=== PATIENT | male | born 1940 | race Caucasian/White ===

== ENCOUNTER 2017-11-04 07:52 | Inpatient (IN) ==
[2017-11-04 09:01] LABS: Alanine Aminotransferase 24 U/L (16-61); Albumin 3.4 G/DL (3.4-5.0); Alkaline Phosphatase 98 U/L (45-117); Aspartate Amino Transferase 22 U/L (0-37); Bilirubin,Total < 0.39 MG/DL (0.2-1.0); Blood Urea Nitrogen 16 MG/DL (7-18); CKMB % 3.3 %; Glucose 149 MG/DL (74-106); Osmolality,Calculated 276.8 MOS/KG (273-304); Sodium 137 MMOL/L (136-145); Total Protein 7.5 G/DL (6.4-8.3); Troponin I Only < 0.015 NG/ML (0.00-0.045)
[2017-11-10 13:09] VITALS: BP 156/84
== END 2017-11-10 13:10 | DRG 208 ==
LOC: N.ED 07:52 → SUATTDRO 08:48 → N.EDINP 08:48 → SUATTDRO 08:49 → N.ICU 09:55 → N.5E 11-08 20:19
PROVIDERS: ADMIT Internal Medicine Cardiovascular Disease; ATTEND Internal Medicine

== ENCOUNTER 2018-01-20 07:53 | Inpatient (IN) ==
[2018-01-20] MEDS ORDERED: SODIUM CHLORIDE 0.9% 1,000 ML IV STA ×2 (08:19→08:48)
[2018-01-20] MEDS ORDERED: VANCOMYCIN INJ 1,500 MG in SODIUM CHLORIDE 0.9% 250 ML IV STA (08:19)
[2018-01-20] MEDS ORDERED: ATROPINE 1 MG/10 ML SYRINGE IV STA ×2 (08:25→10:24)
[2018-01-20] MEDS ORDERED: ATROPINE 1 MG/10 ML SYRINGE ONE (08:25)
[2018-01-20 08:46] LABS: Basophils % 0.3 % (0.0-0.8); Eosinophils # 0.2 10*3/uL (0.0-0.87); Eosinophils % 1.7 % (0.00-10.9); Hematocrit 35.8 VOL% (42.0-52.0); Hemoglobin 11.7 GM/DL (14.0-18.0); Immature Granulocytes % 0.4 %; Immature Granulocytes Absolute 0.05 #; Lymphocytes # 0.5 10*3/uL (1.4-4.0); Lymphocytes % 4.7 % (21.2-54.2); Mean Corpuscular HGB Conc 32.7 GM/DL (32-36); Mean Corpuscular Hemoglobin 32 PG (27-34); Mean Corpuscular Volume 97.3 FL (87-102); Mean Platelet Volume 11.1 FL (9.6-12.0); Monocytes # 0.7 10*3/uL (0.11-0.8); Neutrophils # 9.8 10*3/uL (1.4-7.4); Neutrophils % 86.9 % (38.7-73.9); Platelet Count 249 T/CUMM (130-400); Red Blood Count 3.68 MC/CUMM (3.8-5.5); Red Cell Distribution Width 14.1 % (9.3-17.3); White Blood Count 11.3 T/CUMM (4-12)
[2018-01-20 08:52] LABS: Apearance,Urine CLEAR (Clear); Bacteria,Urine Occasional /HPF (Few); Bilirubin,Urine Negative (Negative); Blood, Urine Negative (Negative); Glucose,Urine (UA) Negative (Negative); Ketones,Urine Negative (Negative); Nitrite,Urine Negative (Negative); Protein,Urine 30 MG/DL; RBC,Urine <1 /HPF (0-4); Squamous Epithelial Cell,Urine Occasional /HPF (0-10); Urine Color Yellow (Yellow); Urine Specific Gravity 1.005 (1.001-1.035); Urine Urobilinogen < 2.0 EU/DL (0.2-1.0); WBC,Urine 4 /HPF (0-6)
[2018-01-20 09:04] LABS: Alanine Aminotransferase 15 U/L (16-61); Albumin 3.4 G/DL (3.4-5.0); Alkaline Phosphatase 88 U/L (45-117); Aspartate Amino Transferase 14 U/L (0-37); Bilirubin,Total < 0.39 MG/DL (0.2-1.0); Calcium 8.6 MG/DL (8.5-10.1)
[2018-01-20 09:05] LABS: Blood Urea Nitrogen 27 MG/DL (7-18); Glucose 75 MG/DL (74-106); Lactic Acid 1.6 MMOL/L (0.4-2.0); Osmolality,Calculated 276.8 MOS/KG (273-304); Potassium 4.9 MMOL/L (3.5-5.1); Sodium 137 MMOL/L (136-145)
[2018-01-20] MEDS ORDERED: ONDANSETRON 4 MG/2 ML VIAL IV PRN (10:13)
[2018-01-20] MEDS ORDERED: ACETAMINOPHEN 325 MG TABLET PO PRN (10:13)
[2018-01-20] MEDS: SODIUM CHLORIDE 0.9% 1,000 ML IV SCH ×2 (11:46→21:15)
[2018-01-20 11:55] LABS: Sedimentation Rate-Westergren 73 MM/HR (0-20)
[2018-01-20] MEDS: LEVOFLOXACIN INJ 750 MG in PREMIX 1 EACH IV SCH (12:19)
[2018-01-20] MEDS: PANTOPRAZOLE 40 MG TABLET PO SCH (12:19)
[2018-01-20] MEDS: carBAMazepine 200 MG TABLET PO SCH ×2 (12:19→16:23)
[2018-01-20] MEDS: VANCOMYCIN INJ 1,500 MG in SODIUM CHLORIDE 0.9% 500 ML IV SCH (12:23)
[2018-01-20 13:30] LABS: Band Neutrophils 1 % (0-10); Eosinophils 1 % (0-10); Lymphocytes 7 % (20-55); Platelet Estimate Normal; Segmented Neutrophils 83 % (50-85); Total Cells Counted 100
[2018-01-20 13:31] LABS: Hypochromasia Slight
[2018-01-20] MEDS ORDERED: ATROPINE 1 MG/10 ML SYRINGE IV PRN (13:38)
[2018-01-20] MEDS: SILVER SULFADIAZINE 1% CREAM 25 GM TUBE TOP SCH (16:10)
[2018-01-20] MEDS: ASCORBIC ACID 500 MG TABLET PO SCH (21:31)
[2018-01-20] MEDS: MIRTAZAPINE 15 MG TABLET PO SCH (21:31)
[2018-01-20] MEDS: ENOXAPARIN 40 MG/0.4 ML SYRINGE SUBCUT SCH (21:31)
[2018-01-20] MEDS: ATORVASTATIN 40 MG TABLET PO SCH (21:31)
[2018-01-20] MEDS: LITHIUM 300 MG CAPSULE PO SCH (21:31)
[2018-01-21] MEDS: VANCOMYCIN INJ 1,500 MG in SODIUM CHLORIDE 0.9% 500 ML IV SCH ×2 (00:59→14:04)
[2018-01-21 06:04] LABS: Basophils # 0.1 10*3/uL (0.0-0.2); Basophils % 0.5 % (0.0-0.8); Eosinophils # 0.3 10*3/uL (0.0-0.87); Eosinophils % 2.8 % (0.00-10.9); Hematocrit 34.8 VOL% (42.0-52.0); Hemoglobin 10.5 GM/DL (14.0-18.0); Immature Granulocytes % 1.2 %; Immature Granulocytes Absolute 0.12 #; Lymphocytes # 1.1 10*3/uL (1.4-4.0); Lymphocytes % 10.8 % (21.2-54.2); Mean Corpuscular HGB Conc 30.2 GM/DL (32-36); Mean Corpuscular Hemoglobin 31 PG (27-34); Mean Corpuscular Volume 103.3 FL (87-102); Mean Platelet Volume 10.9 FL (9.6-12.0); Monocytes # 0.8 10*3/uL (0.11-0.8); Neutrophils # 7.7 10*3/uL (1.4-7.4); Neutrophils % 76.7 % (38.7-73.9); Platelet Count 225 T/CUMM (130-400); Red Blood Count 3.37 MC/CUMM (3.8-5.5); Red Cell Distribution Width 14.5 % (9.3-17.3)
[2018-01-21 06:40] LABS: Albumin 2.9 G/DL (3.4-5.0); Bilirubin,Total 0.5 MG/DL (0.2-1.0); Calcium 8.2 MG/DL (8.5-10.1); Potassium 4.4 MMOL/L (3.5-5.1); Total Protein 6.3 G/DL (6.4-8.3)
[2018-01-21] MEDS: SODIUM CHLORIDE 0.9% 1,000 ML IV SCH ×3 (07:26→19:40)
[2018-01-21] MEDS: ASPIRIN EC 81 MG TABLET PO SCH (08:28)
[2018-01-21] MEDS: LACTOBACILLUS ACIDOPHILUS/BULGARICUS CAPLET PO SCH (08:28)
[2018-01-21] MEDS: LITHIUM 300 MG CAPSULE PO SCH ×2 (08:29→20:58)
[2018-01-21] MEDS: MULTIVITAMIN (CENTRUM) TABLET PO SCH (08:29)
[2018-01-21] MEDS: ASCORBIC ACID 500 MG TABLET PO SCH ×2 (08:29→20:58)
[2018-01-21] MEDS: PANTOPRAZOLE 40 MG TABLET PO SCH (08:30)
[2018-01-21] MEDS: carBAMazepine 200 MG TABLET PO SCH ×3 (08:30→16:05)
[2018-01-21] MEDS: SILVER SULFADIAZINE 1% CREAM 25 GM TUBE TOP SCH (08:30)
[2018-01-21] MEDS: LEVOFLOXACIN INJ 750 MG in PREMIX 1 EACH IV SCH (12:34)
[2018-01-21] MEDS ORDERED: PROPOFOL 1,000 MG/100 ML BOTTLE IV ONE (15:40)
[2018-01-21] MEDS: MIRTAZAPINE 15 MG TABLET PO SCH (20:58)
[2018-01-21] MEDS: ATORVASTATIN 40 MG TABLET PO SCH (20:58)
[2018-01-21] MEDS: ENOXAPARIN 40 MG/0.4 ML SYRINGE SUBCUT SCH (21:03)
[2018-01-22] MEDS: VANCOMYCIN INJ 1,500 MG in SODIUM CHLORIDE 0.9% 500 ML IV SCH (01:00)
[2018-01-22] MEDS: SODIUM CHLORIDE 0.9% 1,000 ML IV SCH (03:05)
[2018-01-22 08:33] LABS: Basophils % 0.4 % (0.0-0.8); Eosinophils # 0.4 10*3/uL (0.0-0.87); Eosinophils % 4.6 % (0.00-10.9); Hematocrit 34.9 VOL% (42.0-52.0); Immature Granulocytes % 0.1 %; Immature Granulocytes Absolute 0.01 #; Lymphocytes # 1.2 10*3/uL (1.4-4.0); Lymphocytes % 13.3 % (21.2-54.2); Mean Corpuscular HGB Conc 31.5 GM/DL (32-36); Mean Corpuscular Hemoglobin 32 PG (27-34); Mean Corpuscular Volume 100.3 FL (87-102); Monocytes # 0.8 10*3/uL (0.11-0.8); Monocytes % 8.3 % (1.7-12.7); Neutrophils # 6.7 10*3/uL (1.4-7.4); Neutrophils % 73.3 % (38.7-73.9); Platelet Count 222 T/CUMM (130-400); Red Blood Count 3.48 MC/CUMM (3.8-5.5); Red Cell Distribution Width 14.4 % (9.3-17.3); White Blood Count 9.2 T/CUMM (4-12)
[2018-01-22 08:51] LABS: Osmolality,Calculated 283.3 MOS/KG (273-304); Potassium 4.1 MMOL/L (3.5-5.1)
[2018-01-22] MEDS: ASCORBIC ACID 500 MG TABLET PO SCH ×2 (09:14→21:04)
[2018-01-22] MEDS: MULTIVITAMIN (CENTRUM) TABLET PO SCH (09:14)
[2018-01-22] MEDS: TAMSULOSIN 0.4 MG CAPSULE PO SCH (09:14)
[2018-01-22] MEDS: LACTOBACILLUS ACIDOPHILUS/BULGARICUS CAPLET PO SCH (09:14)
[2018-01-22] MEDS: ASPIRIN EC 81 MG TABLET PO SCH (09:15)
[2018-01-22] MEDS: PANTOPRAZOLE 40 MG TABLET PO SCH (09:15)
[2018-01-22] MEDS: LITHIUM 300 MG CAPSULE PO SCH ×2 (09:16→21:04)
[2018-01-22] MEDS: carBAMazepine 200 MG TABLET PO SCH ×3 (09:16→16:25)
[2018-01-22] MEDS ORDERED: VANCOMYCIN INJ 1,250 MG in SODIUM CHLORIDE 0.9% 250 ML IV SCH ×2 (09:30→14:00)
[2018-01-22] MEDS: LEVOFLOXACIN INJ 750 MG in PREMIX 1 EACH IV SCH (09:47)
[2018-01-22] MEDS: SILVER SULFADIAZINE 1% CREAM 25 GM TUBE TOP SCH (10:45)
[2018-01-22] MEDS: ceFAZolin 1,000 MG in SYRINGE 1 EACH IV SCH (16:26)
[2018-01-22] MEDS: ENOXAPARIN 40 MG/0.4 ML SYRINGE SUBCUT SCH (21:03)
[2018-01-22] MEDS: MIRTAZAPINE 15 MG TABLET PO SCH (21:04)
[2018-01-22] MEDS: ATORVASTATIN 40 MG TABLET PO SCH (21:04)
[2018-01-23] MEDS: ceFAZolin 1,000 MG in SYRINGE 1 EACH IV SCH ×2 (01:24→09:57)
[2018-01-23 04:16] LABS: Basophils # 0.1 10*3/uL (0.0-0.2); Basophils % 0.5 % (0.0-0.8); Eosinophils # 0.5 10*3/uL (0.0-0.87); Eosinophils % 4.9 % (0.00-10.9); Hematocrit 34.6 VOL% (42.0-52.0); Hemoglobin 10.8 GM/DL (14.0-18.0); Immature Granulocytes % 0.3 %; Immature Granulocytes Absolute 0.03 #; Lymphocytes # 0.9 10*3/uL (1.4-4.0); Lymphocytes % 9.7 % (21.2-54.2); Mean Corpuscular HGB Conc 31.2 GM/DL (32-36); Mean Corpuscular Hemoglobin 32 PG (27-34); Mean Corpuscular Volume 102.4 FL (87-102); Mean Platelet Volume 10.8 FL (9.6-12.0); Monocytes # 0.8 10*3/uL (0.11-0.8); Monocytes % 8.9 % (1.7-12.7); Neutrophils # 7.2 10*3/uL (1.4-7.4); Neutrophils % 75.7 % (38.7-73.9); Platelet Count 212 T/CUMM (130-400); Red Blood Count 3.38 MC/CUMM (3.8-5.5); Red Cell Distribution Width 13.9 % (9.3-17.3); White Blood Count 9.5 T/CUMM (4-12)
[2018-01-23 04:44] LABS: Albumin 2.8 G/DL (3.4-5.0); Bilirubin,Total 0.5 MG/DL (0.2-1.0); Calcium 8.6 MG/DL (8.5-10.1); Potassium 4.3 MMOL/L (3.5-5.1); Total Protein 6.5 G/DL (6.4-8.3)
[2018-01-23 06:07] LABS: Folate 12.8 NG/ML (5.4-24.0)
[2018-01-23] MEDS ORDERED: CYANOCOBALAMIN 1000 MCG/1 ML VIAL IM SCH (09:00)
[2018-01-23] MEDS ORDERED: FOLIC ACID 1 MG TABLET PO SCH (09:00)
[2018-01-23] MEDS: LITHIUM 300 MG CAPSULE PO SCH (09:54)
[2018-01-23] MEDS: ASCORBIC ACID 500 MG TABLET PO SCH (09:55)
[2018-01-23] MEDS: MULTIVITAMIN (CENTRUM) TABLET PO SCH (09:55)
[2018-01-23] MEDS: PANTOPRAZOLE 40 MG TABLET PO SCH (09:55)
[2018-01-23] MEDS: LACTOBACILLUS ACIDOPHILUS/BULGARICUS CAPLET PO SCH (09:55)
[2018-01-23] MEDS: carBAMazepine 200 MG TABLET PO SCH ×2 (09:55→12:08)
[2018-01-23] MEDS: ASPIRIN EC 81 MG TABLET PO SCH (09:55)
[2018-01-23] MEDS: TAMSULOSIN 0.4 MG CAPSULE PO SCH (09:55)
[2018-01-23] MEDS: SILVER SULFADIAZINE 1% CREAM 25 GM TUBE TOP SCH (10:04)
[2018-01-23 12:04] VITALS: BP 117/59
[2018-01-25] MEDS ORDERED: CYANOCOBALAMIN 500 MCG TABLET PO SCH (09:00)
== END 2018-01-23 13:06 | DRG 603 ==
LOC: EDUNIT# → EDBD → N.ED 07:53 → N.EDINP 10:13 → SUATTDRO 10:13 → N.ICU 11:06 → N.2E 01-21 17:05
PROVIDERS: ADMIT Hospitalist; ATTEND Internal Medicine

== ENCOUNTER 2018-02-14 09:29 | Inpatient (IN) ==
[2018-02-14 10:20] LABS: Basophils % 0.4 % (0.0-0.8); Eosinophils # 0.4 10*3/uL (0.0-0.87); Eosinophils % 4.2 % (0.00-10.9); Hematocrit 36.3 VOL% (42.0-52.0); Immature Granulocytes % 0.3 %; Immature Granulocytes Absolute 0.03 #; Lymphocytes % 11.2 % (21.2-54.2); Mean Corpuscular HGB Conc 30.3 GM/DL (32-36); Mean Corpuscular Hemoglobin 31 PG (27-34); Mean Corpuscular Volume 101.7 FL (87-102); Mean Platelet Volume 10.8 FL (9.6-12.0); Monocytes # 0.7 10*3/uL (0.11-0.8); Neutrophils # 6.8 10*3/uL (1.4-7.4); Neutrophils % 75.9 % (38.7-73.9); Platelet Count 202 T/CUMM (130-400); Red Blood Count 3.57 MC/CUMM (3.8-5.5); Red Cell Distribution Width 14.7 % (9.3-17.3); White Blood Count 8.9 T/CUMM (4-12)
[2018-02-14 10:46] LABS: Albumin 3.4 G/DL (3.4-5.0); Bilirubin,Total 0.4 MG/DL (0.2-1.0); Calcium 8.7 MG/DL (8.5-10.1); Osmolality,Calculated 285.1 MOS/KG (273-304); Potassium 4.9 MMOL/L (3.5-5.1); Total Protein 6.8 G/DL (6.4-8.3)
[2018-02-14] MEDS ORDERED: ACETAMINOPHEN 325 MG TABLET PO PRN (12:38)
[2018-02-14] MEDS ORDERED: ALBUTEROL 2.5 MG/3 ML NEB RESP TX PRN (12:38)
[2018-02-14] MEDS ORDERED: ONDANSETRON 4 MG/2 ML VIAL IV PRN (12:38)
[2018-02-14] MEDS ORDERED: ATROPINE 1 MG/10 ML SYRINGE IV PRN (12:47)
[2018-02-14 13:32] LABS: Carbamazepine (Tegretol) 8.8 UG/ML (4.0-12.0); Lithium 0.9 MMOL/L (0.6-1.2)
[2018-02-14] MEDS: PANTOPRAZOLE 40 MG TABLET PO SCH (13:52)
[2018-02-14] MEDS ORDERED: INFLUENZA VIRUS VACCINE 0.5 ML SYRINGE IM ONE (14:03)
[2018-02-14] MEDS: carBAMazepine 200 MG TABLET PO SCH (17:57)
[2018-02-14] MEDS: ENOXAPARIN 40 MG/0.4 ML SYRINGE SUBCUT SCH (17:57)
[2018-02-14] MEDS: FOLIC ACID 1 MG TABLET PO SCH (21:15)
[2018-02-14] MEDS: ATORVASTATIN 40 MG TABLET PO SCH (21:15)
[2018-02-14] MEDS: MIRTAZAPINE 15 MG TABLET PO SCH (21:15)
[2018-02-14] MEDS: LOSARTAN 25 MG TABLET PO SCH (21:16)
[2018-02-14] MEDS: ASCORBIC ACID 500 MG TABLET PO SCH (21:16)
[2018-02-14] MEDS: LITHIUM 300 MG CAPSULE PO SCH (21:16)
[2018-02-15] MEDS: MULTIVITAMIN (CENTRUM) TABLET PO SCH (09:19)
[2018-02-15] MEDS: LACTULOSE 20 GM/30 ML UDCUP PO SCH (09:19)
[2018-02-15] MEDS: ASCORBIC ACID 500 MG TABLET PO SCH ×2 (09:19→20:24)
[2018-02-15] MEDS: FOLIC ACID 1 MG TABLET PO SCH ×2 (09:20→20:24)
[2018-02-15] MEDS: LITHIUM 300 MG CAPSULE PO SCH ×2 (10:00→20:24)
[2018-02-15] MEDS: carBAMazepine 200 MG TABLET PO SCH ×3 (10:00→16:25)
[2018-02-15] MEDS: ASPIRIN EC 81 MG TABLET PO SCH (10:00)
[2018-02-15] MEDS: LOSARTAN 25 MG TABLET PO SCH ×2 (10:01→20:24)
[2018-02-15] MEDS: FINASTERIDE 5 MG TABLET PO SCH (10:01)
[2018-02-15] MEDS: PANTOPRAZOLE 40 MG TABLET PO SCH (10:01)
[2018-02-15] MEDS ORDERED: VANCOMYCIN INJ 1,000 MG in SODIUM CHLORIDE 0.9% 250 ML IV ONE (10:06)
[2018-02-15] MEDS ORDERED: DIAZEPAM 5 MG TABLET PO ONE (10:06)
[2018-02-15] MEDS ORDERED: diphenhydrAMINE CAP 25 MG CAPSULE PO ONE (10:06)
[2018-02-15] MEDS ORDERED: hydrALAZINE 20 MG/1 ML VIAL IV SCH (12:00)
[2018-02-15] MEDS: SODIUM CHLORIDE 0.9% 1,000 ML IV SCH ×2 (12:23→19:40)
[2018-02-15] MEDS ORDERED: MIDAZOLAM 2 MG/2 ML VIAL ONE (13:02)
[2018-02-15] MEDS ORDERED: LIDOCAINE 1% 20 ML VIAL ONE (13:02)
[2018-02-15] MEDS ORDERED: HYDROmorphone 2 MG/1 ML VIAL ONE (13:02)
[2018-02-15] MEDS ORDERED: VANCOMYCIN 500 MG VIAL ONE ×2 (13:07→13:38)
[2018-02-15] MEDS ORDERED: LIDOCAINE 1%/EPI INJ 20 ML VIAL ONE (13:21)
[2018-02-15] MEDS ORDERED: TISSUE ADHESIVE 1 EACH APPLICATOR TOP ONE (13:47)
[2018-02-15] MEDS: ALBUTEROL 2.5 MG/3 ML NEB RESP TX SCH ×2 (14:05→19:51)
[2018-02-15] MEDS: ENOXAPARIN 40 MG/0.4 ML SYRINGE SUBCUT SCH (16:24)
[2018-02-15] MEDS: hydrALAZINE 20 MG/1 ML VIAL IV PRN ×2 (18:55→23:12)
[2018-02-15] MEDS: ATORVASTATIN 40 MG TABLET PO SCH (20:24)
[2018-02-15] MEDS: MIRTAZAPINE 15 MG TABLET PO SCH (20:24)
[2018-02-16] MEDS: ALBUTEROL 2.5 MG/3 ML NEB RESP TX SCH ×3 (00:56→12:15)
[2018-02-16] MEDS: hydrALAZINE 20 MG/1 ML VIAL IV PRN (04:22)
[2018-02-16 05:27] LABS: Basophils # 0.1 10*3/uL (0.0-0.2); Basophils % 0.6 % (0.0-0.8); Eosinophils # 0.2 10*3/uL (0.0-0.87); Hematocrit 34.9 VOL% (42.0-52.0); Hemoglobin 10.7 GM/DL (14.0-18.0); Immature Granulocytes % 0.4 %; Immature Granulocytes Absolute 0.04 #; Lymphocytes # 1.1 10*3/uL (1.4-4.0); Lymphocytes % 10.2 % (21.2-54.2); Mean Corpuscular HGB Conc 30.7 GM/DL (32-36); Mean Corpuscular Hemoglobin 31 PG (27-34); Mean Corpuscular Volume 100.9 FL (87-102); Mean Platelet Volume 11.3 FL (9.6-12.0); Monocytes # 0.9 10*3/uL (0.11-0.8); Monocytes % 8.1 % (1.7-12.7); Neutrophils # 8.4 10*3/uL (1.4-7.4); Neutrophils % 78.7 % (38.7-73.9); Platelet Count 199 T/CUMM (130-400); Red Blood Count 3.46 MC/CUMM (3.8-5.5); Red Cell Distribution Width 14.5 % (9.3-17.3); White Blood Count 10.6 T/CUMM (4-12)
[2018-02-16 05:50] LABS: Calcium 8.4 MG/DL (8.5-10.1); Osmolality,Calculated 277.5 MOS/KG (273-304); Potassium 5.2 MMOL/L (3.5-5.1)
[2018-02-16 06:00] LABS: Calcium 8.4 MG/DL (8.5-10.1); Osmolality,Calculated 275.7 MOS/KG (273-304); Potassium 5.2 MMOL/L (3.5-5.1)
[2018-02-16] MEDS: MULTIVITAMIN (CENTRUM) TABLET PO SCH (08:27)
[2018-02-16] MEDS: carBAMazepine 200 MG TABLET PO SCH ×3 (08:27→16:07)
[2018-02-16] MEDS: FOLIC ACID 1 MG TABLET PO SCH ×2 (08:27→20:42)
[2018-02-16] MEDS: LOSARTAN 25 MG TABLET PO SCH (08:28)
[2018-02-16] MEDS: LITHIUM 300 MG CAPSULE PO SCH ×2 (08:28→20:42)
[2018-02-16] MEDS: PANTOPRAZOLE 40 MG TABLET PO SCH (08:28)
[2018-02-16] MEDS: ASPIRIN EC 81 MG TABLET PO SCH (08:28)
[2018-02-16] MEDS: FINASTERIDE 5 MG TABLET PO SCH (08:28)
[2018-02-16] MEDS: LACTULOSE 20 GM/30 ML UDCUP PO SCH (08:28)
[2018-02-16] MEDS: ASCORBIC ACID 500 MG TABLET PO SCH ×2 (08:28→20:42)
[2018-02-16] MEDS ORDERED: SODIUM POLYSTYRENE SULFATE 15 GM/60 ML BOTTLE PO ONE (08:44)
[2018-02-16] MEDS: SODIUM CHLORIDE 0.9% 1,000 ML IV SCH (09:33)
[2018-02-16] MEDS: hydrALAZINE 25 MG TABLET PO SCH ×2 (09:33→20:42)
[2018-02-16] MEDS: ENOXAPARIN 40 MG/0.4 ML SYRINGE SUBCUT SCH (16:06)
[2018-02-16] MEDS: MIRTAZAPINE 15 MG TABLET PO SCH (20:42)
[2018-02-16] MEDS: ATORVASTATIN 40 MG TABLET PO SCH (20:42)
[2018-02-17 06:02] LABS: Basophils % 0.3 % (0.0-0.8); Eosinophils # 0.6 10*3/uL (0.0-0.87); Eosinophils % 4.2 % (0.00-10.9); Hematocrit 36.2 VOL% (42.0-52.0); Hemoglobin 11.3 GM/DL (14.0-18.0); Immature Granulocytes % 0.4 %; Immature Granulocytes Absolute 0.05 #; Lymphocytes # 1.3 10*3/uL (1.4-4.0); Lymphocytes % 10.1 % (21.2-54.2); Mean Corpuscular HGB Conc 31.2 GM/DL (32-36); Mean Corpuscular Hemoglobin 31 PG (27-34); Mean Platelet Volume 10.9 FL (9.6-12.0); Monocytes # 1.2 10*3/uL (0.11-0.8); Monocytes % 9.2 % (1.7-12.7); Neutrophils % 75.8 % (38.7-73.9); Platelet Count 201 T/CUMM (130-400); Red Blood Count 3.62 MC/CUMM (3.8-5.5); Red Cell Distribution Width 14.6 % (9.3-17.3); White Blood Count 13.2 T/CUMM (4-12)
[2018-02-17 06:22] LABS: Calcium 8.7 MG/DL (8.5-10.1); Osmolality,Calculated 277.5 MOS/KG (273-304); Potassium 4.5 MMOL/L (3.5-5.1)
[2018-02-17] MEDS: MULTIVITAMIN (CENTRUM) TABLET PO SCH (09:38)
[2018-02-17] MEDS: FINASTERIDE 5 MG TABLET PO SCH (09:38)
[2018-02-17] MEDS: carBAMazepine 200 MG TABLET PO SCH ×3 (09:38→16:23)
[2018-02-17] MEDS: LITHIUM 300 MG CAPSULE PO SCH (09:38)
[2018-02-17] MEDS: ASCORBIC ACID 500 MG TABLET PO SCH ×2 (09:39→21:01)
[2018-02-17] MEDS: FOLIC ACID 1 MG TABLET PO SCH ×2 (09:39→21:01)
[2018-02-17] MEDS: hydrALAZINE 25 MG TABLET PO SCH (09:39)
[2018-02-17] MEDS: LACTULOSE 20 GM/30 ML UDCUP PO SCH (09:39)
[2018-02-17] MEDS: ASPIRIN EC 81 MG TABLET PO SCH (09:39)
[2018-02-17] MEDS: PANTOPRAZOLE 40 MG TABLET PO SCH (09:39)
[2018-02-17] MEDS: LOSARTAN 50 MG TABLET PO SCH (11:15)
[2018-02-17 15:23] LABS: Apearance,Urine CLEAR (Clear); Bilirubin,Urine Negative (Negative); Blood, Urine Negative (Negative); Glucose,Urine (UA) Negative (Negative); Ketones,Urine Negative (Negative); Mucus,Urine Occasional /LPF (Occasional); Nitrite,Urine Negative (Negative); Protein,Urine Negative; RBC,Urine <1 /HPF (0-4); Squamous Epithelial Cell,Urine Occasional /HPF (0-10); Urine Color Yellow (Yellow); Urine Specific Gravity 1.009 (1.001-1.035); Urine Urobilinogen < 2.0 EU/DL (0.2-1.0); WBC,Urine 2 /HPF (0-6)
[2018-02-17] MEDS: ENOXAPARIN 40 MG/0.4 ML SYRINGE SUBCUT SCH (16:23)
[2018-02-17] MEDS: MIRTAZAPINE 15 MG TABLET PO SCH (21:01)
[2018-02-17] MEDS: ATORVASTATIN 40 MG TABLET PO SCH (21:01)
[2018-02-17 22:25] LABS: Carbamazepine (Tegretol) 9.9 UG/ML (4.0-12.0); Lithium 0.8 MMOL/L (0.6-1.2)
[2018-02-18] MEDS: LITHIUM 300 MG CAPSULE PO SCH ×3 (00:23→21:46)
[2018-02-18] MEDS: LACTULOSE 20 GM/30 ML UDCUP PO SCH (09:12)
[2018-02-18] MEDS: FOLIC ACID 1 MG TABLET PO SCH ×2 (09:13→21:37)
[2018-02-18] MEDS: LOSARTAN 50 MG TABLET PO SCH (09:13)
[2018-02-18] MEDS: FINASTERIDE 5 MG TABLET PO SCH (09:13)
[2018-02-18] MEDS: carBAMazepine 200 MG TABLET PO SCH ×3 (09:13→16:07)
[2018-02-18] MEDS: PANTOPRAZOLE 40 MG TABLET PO SCH (09:13)
[2018-02-18] MEDS: ASPIRIN EC 81 MG TABLET PO SCH (09:13)
[2018-02-18] MEDS: MULTIVITAMIN (CENTRUM) TABLET PO SCH (09:14)
[2018-02-18] MEDS: ASCORBIC ACID 500 MG TABLET PO SCH ×2 (09:14→21:37)
[2018-02-18 10:29] LABS: Basophils # 0.1 10*3/uL (0.0-0.2); Basophils % 0.4 % (0.0-0.8); Eosinophils # 0.5 10*3/uL (0.0-0.87); Eosinophils % 3.8 % (0.00-10.9); Hematocrit 36.7 VOL% (42.0-52.0); Hemoglobin 11.4 GM/DL (14.0-18.0); Immature Granulocytes % 0.3 %; Immature Granulocytes Absolute 0.04 #; Lymphocytes # 1.4 10*3/uL (1.4-4.0); Lymphocytes % 10.7 % (21.2-54.2); Mean Corpuscular HGB Conc 31.1 GM/DL (32-36); Mean Corpuscular Hemoglobin 31 PG (27-34); Mean Platelet Volume 10.8 FL (9.6-12.0); Monocytes # 1.2 10*3/uL (0.11-0.8); Monocytes % 9.3 % (1.7-12.7); Neutrophils # 9.6 10*3/uL (1.4-7.4); Neutrophils % 75.5 % (38.7-73.9); Platelet Count 197 T/CUMM (130-400); Red Blood Count 3.67 MC/CUMM (3.8-5.5); Red Cell Distribution Width 14.6 % (9.3-17.3); White Blood Count 12.7 T/CUMM (4-12)
[2018-02-18] MEDS ORDERED: LEVOFLOXACIN INJ 750 MG in PREMIX 1 EACH IV SCH (11:00)
[2018-02-18 11:19] LABS: Calcium 9.1 MG/DL (8.5-10.1); Osmolality,Calculated 276.5 MOS/KG (273-304); Potassium 4.4 MMOL/L (3.5-5.1)
[2018-02-18] MEDS: VANCOMYCIN INJ 1,500 MG in SODIUM CHLORIDE 0.9% 500 ML IV SCH (13:14)
[2018-02-18] MEDS: ENOXAPARIN 40 MG/0.4 ML SYRINGE SUBCUT SCH (16:07)
[2018-02-18] MEDS ORDERED: HALOPERIDOL 5 MG/ML AMP IM PRN (20:38)
[2018-02-18] MEDS: risperiDONE 1 MG TABLET PO PRN (21:36)
[2018-02-18] MEDS: ATORVASTATIN 40 MG TABLET PO SCH (21:37)
[2018-02-18] MEDS: MIRTAZAPINE 15 MG TABLET PO SCH (21:37)
[2018-02-19] MEDS: VANCOMYCIN INJ 1,500 MG in SODIUM CHLORIDE 0.9% 500 ML IV SCH (00:28)
[2018-02-19] MEDS: risperiDONE 1 MG TABLET PO PRN (04:01)
[2018-02-19] MEDS: FOLIC ACID 1 MG TABLET PO SCH (09:47)
[2018-02-19] MEDS: LOSARTAN 50 MG TABLET PO SCH (09:47)
[2018-02-19] MEDS: PANTOPRAZOLE 40 MG TABLET PO SCH (09:47)
[2018-02-19] MEDS: carBAMazepine 200 MG TABLET PO SCH ×2 (09:47→12:19)
[2018-02-19] MEDS: LACTULOSE 20 GM/30 ML UDCUP PO SCH (09:47)
[2018-02-19] MEDS: LITHIUM 300 MG CAPSULE PO SCH (09:47)
[2018-02-19] MEDS: MULTIVITAMIN (CENTRUM) TABLET PO SCH (09:47)
[2018-02-19] MEDS: FINASTERIDE 5 MG TABLET PO SCH (09:47)
[2018-02-19] MEDS: ASPIRIN EC 81 MG TABLET PO SCH (09:48)
[2018-02-19] MEDS: ASCORBIC ACID 500 MG TABLET PO SCH (09:48)
[2018-02-19 12:01] VITALS: BP 101/49
[2018-02-19] MEDS: ENOXAPARIN 40 MG/0.4 ML SYRINGE SUBCUT SCH (13:44)
[2018-02-19] MEDS ORDERED: SULFAMETHOX/TRIMETHOPRIM 800-160 MG TABLET PO SCH (21:00)
== END 2018-02-19 14:28 | DRG 243 ==
LOC: EDBD → EDUNIT# → N.ED 09:29 → SUATTDRO 12:38 → N.EDINP 12:38 → N.CC 13:39 → N.TELEN 02-16 12:45
PROVIDERS: ADMIT Internal Medicine

== ENCOUNTER 2021-02-25 17:03 | Inpatient (IN) ==
[2021-02-25] MEDS ORDERED: SODIUM CHLORIDE 0.9% 1,000 ML IV STA (17:41)
[2021-02-25 18:23] LABS: Basophils % 0.3 % (0.0-0.8); Eosinophils # 0.4 10*3/uL (0.0-0.87); Eosinophils % 4.5 % (0.00-10.9); Hematocrit 44.6 VOL% (42.0-52.0); Immature Granulocytes % 0.5 %; Immature Granulocytes Absolute 0.04 #; Lymphocytes % 11.1 % (21.2-54.2); Mean Corpuscular HGB Conc 29.8 GM/DL (32-36); Mean Platelet Volume 11.6 FL (9.6-12.0); Monocytes % 5.6 % (1.7-12.7); Platelet Count 165 T/CUMM (130-400); Red Blood Count 4.33 MC/CUMM (3.8-5.5); Red Cell Distribution Width 13.8 % (9.3-17.3); White Blood Count 8.7 T/CUMM (4-12)
[2021-02-25 18:25] LABS: Hemoglobin 13.3 GM/DL (14.0-18.0)
[2021-02-25 18:31] LABS: Bacteria,Urine Many /HPF (Few); Bilirubin,Urine Negative (Negative); Blood, Urine Negative (Negative); Glucose,Urine (UA) Negative (Negative); Hyaline Casts,Urine 5 /LPF (0-3); Ketones,Urine Negative (Negative); Mucus,Urine Occasional /LPF (Occasional); Nitrite,Urine Negative (Negative); Protein,Urine Negative; RBC,Urine 2 /HPF (0-4); Urine Appearance CLEAR (Clear); Urine Color Yellow (Yellow); Urine Specific Gravity 1.009 (1.001-1.035); Urine Urobilinogen < 2.0 EU/DL (0.2-1.0)
[2021-02-25 18:40] LABS: Bilirubin,Total 0.4 MG/DL (0.20-1.00); Calcium 9.5 MG/DL (8.5-10.1); Osmolality,Calculated 276.7 MOS/KG (273-304); Potassium 5.7 MMOL/L (3.5-5.1); Total Protein 6.8 G/DL (6.4-8.2)
[2021-02-25] MEDS ORDERED: LEVALBUTEROL 1.25 MG/3 ML NEB RESP TX STA (20:57)
[2021-02-25] MEDS ORDERED: ONDANSETRON 4 MG/2 ML VIAL IV PRN (22:28)
[2021-02-25] MEDS ORDERED: ACETAMINOPHEN 325 MG TABLET PO PRN (22:28)
[2021-02-25] MEDS ORDERED: INSULIN REGULAR 10 UNIT, CALCIUM GLUCONATE 1,000 MG in DEXTROSE 10% 250 ML IV ONE (23:00)
[2021-02-26] MEDS ORDERED: LEVOFLOXACIN INJ 750 MG/150 ML PREMIX IV SCH
[2021-02-26] MEDS ORDERED: AZTREONAM 2,000 MG in SODIUM CHLORIDE 0.9% 100 ML IV SCH
[2021-02-26] MEDS: LEVALBUTEROL 1.25 MG/3 ML NEB RESP TX SCH ×2 (00:35→07:28)
[2021-02-26 06:32] LABS: Albumin 2.8 G/DL (3.4-5.0); Bilirubin,Total 0.7 MG/DL (0.20-1.00); Calcium 9.8 MG/DL (8.5-10.1); Total Protein 6.8 G/DL (6.4-8.2)
[2021-02-26 06:39] LABS: Basophils % 0.4 % (0.0-0.8); Eosinophils # 0.4 10*3/uL (0.0-0.87); Eosinophils % 3.7 % (0.00-10.9); Hematocrit 43.7 VOL% (42.0-52.0); Immature Granulocytes % 0.5 %; Immature Granulocytes Absolute 0.05 #; Lymphocytes # 0.8 10*3/uL (1.4-4.0); Lymphocytes % 8.1 % (21.2-54.2); Mean Corpuscular HGB Conc 29.7 GM/DL (32-36); Mean Corpuscular Volume 103.8 FL (87-102); Mean Platelet Volume 10.8 FL (9.6-12.0); Monocytes % 5.9 % (1.7-12.7); Neutrophils % 81.4 % (38.7-73.9); Platelet Count 179 T/CUMM (130-400); Red Blood Count 4.21 MC/CUMM (3.8-5.5); Red Cell Distribution Width 13.7 % (9.3-17.3); White Blood Count 9.3 T/CUMM (4-12)
[2021-02-26 06:42] LABS: Osmolality,Calculated 276.7 MOS/KG (273-304); Potassium 4.5 MMOL/L (3.5-5.1)
[2021-02-26] MEDS ORDERED: OLANZapine 2.5 MG TABLET PO PRN (07:26)
[2021-02-26] MEDS ORDERED: ZIPRASIDONE 20 MG/1 ML VIAL IM PRN (08:57)
[2021-02-26] MEDS ORDERED: cefTRIAXone 1,000 MG in SODIUM CHLORIDE 0.9% 100 ML IV SCH (09:00)
[2021-02-26] MEDS ORDERED: ENOXAPARIN 40 MG/0.4 ML SYRINGE SUBCUT SCH (09:00)
[2021-02-26] MEDS ORDERED: INFLUENZA VIRUS VACCINE 0.5 ML SYRINGE IM ONE (09:00)
[2021-02-26] MEDS ORDERED: PANTOPRAZOLE 40 MG TABLET PO SCH (09:00)
[2021-02-26] MEDS: OLANZapine 2.5 MG TABLET PO SCH ×2 (09:38→14:47)
[2021-02-26] MEDS ORDERED: AZITHROMYCIN INJ 500 MG in SODIUM CHLORIDE 0.9% 250 ML IV SCH (10:00)
[2021-02-26] MEDS ORDERED: FLUTICASONE 50 MCG NASAL SPRAY 16 GM BOTTLE BOTH NARES SCH (11:00)
[2021-02-26] MEDS ORDERED: ALBUTEROL 2.5 MG/3 ML NEB RESP TX SCH (13:00)
[2021-02-26 16:02] VITALS: BP 122/54
== END 2021-02-26 16:04 | DRG 194 ==
LOC: EDUNIT# → EDBD → N.ED 17:03 → N.EDINP 22:28 → N.5E 23:07
PROVIDERS: ADMIT Internal Medicine; ATTEND Internal Medicine

== ENCOUNTER 2021-03-23 08:42 | Inpatient (IN) ==
[2021-03-23] MEDS ORDERED: SODIUM CHLORIDE 0.9% 2,000 ML IV STA (09:02)
[2021-03-23 09:32] LABS: Basophils % 0.1 % (0.0-0.8); Eosinophils # 0.1 10*3/uL (0.0-0.87); Eosinophils % 0.4 % (0.00-10.9); Hematocrit 41.4 VOL% (42.0-52.0); Hemoglobin 12.7 GM/DL (14.0-18.0); Immature Granulocytes % 0.4 %; Immature Granulocytes Absolute 0.06 #; Lymphocytes # 0.7 10*3/uL (1.4-4.0); Lymphocytes % 4.6 % (21.2-54.2); Mean Corpuscular HGB Conc 30.7 GM/DL (32-36); Mean Platelet Volume 11.1 FL (9.6-12.0); Monocytes % 4.5 % (1.7-12.7); Platelet Count 210 T/CUMM (130-400); Red Blood Count 4.06 MC/CUMM (3.8-5.5); Red Cell Distribution Width 14.2 % (9.3-17.3); White Blood Count 14.5 T/CUMM (4-12)
[2021-03-23 10:06] LABS: Eosinophils 1 % (0-10); Lymphocytes 4 % (20-55); Segmented Neutrophils 94 % (50-85); Total Cells Counted 100
[2021-03-23 10:07] LABS: Hypochromasia Slight; Macrocytosis Slight
[2021-03-23 10:08] LABS: Burr Cells Slight
[2021-03-23 10:20] LABS: Amorphous Crystals,Urine Few /HPF (Few); Bacteria,Urine Few /HPF (Few); Bilirubin,Urine Negative (Negative); Blood, Urine Negative (Negative); Glucose,Urine (UA) Negative (Negative); Hyaline Casts,Urine 1 /LPF (0-3); Ketones,Urine Negative (Negative); Mucus,Urine Occasional /LPF (Occasional); Nitrite,Urine Negative (Negative); Protein,Urine Negative; Squamous Epithelial Cell,Urine Occasional /HPF (0-10); Urine Appearance Slightly Hazy (Clear); Urine Color Yellow (Yellow); Urine Specific Gravity 1.015 (1.001-1.035); Urine Urobilinogen < 2.0 EU/DL (0.2-1.0)
[2021-03-23 10:25] LABS: Barbiturates Screen,Urine Negative (Negative); Benzodiazepines Screen,Urine Negative (Negative); Cannabinoid Screen,Urine Negative (Negative); Opiate Screen,Urine Negative (Negative); Phencyclidine Screen,Urine Negative (Negative)
[2021-03-23 10:29] LABS: PT Patient Result 11.3 SECS (10.5-12.0); Partial Thromboplastin Time 34.3 SECS (23.8-32.1)
[2021-03-23 10:38] LABS: Albumin 2.8 G/DL (3.4-5.0); Bilirubin,Total 0.4 MG/DL (0.20-1.00); Calcium 9.1 MG/DL (8.5-10.1); Osmolality,Calculated 297.7 MOS/KG (273-304); Potassium 4.7 MMOL/L (3.5-5.1); Total Protein 7.1 G/DL (6.4-8.2)
[2021-03-23] MEDS ORDERED: LEVOFLOXACIN INJ 500 MG/100 ML PREMIX IV ONE (11:15)
[2021-03-23] MEDS ORDERED: LEVOFLOXACIN INJ 500 MG/100 ML PREMIX IV STA (11:30)
[2021-03-23] MEDS ORDERED: SODIUM CHLORIDE 0.9% 1,000 ML IV STA (11:32)
[2021-03-23] MEDS ORDERED: ALBUTEROL 2.5 MG/3 ML NEB RESP TX PRN (11:49)
[2021-03-23] MEDS ORDERED: ONDANSETRON 4 MG/2 ML VIAL IV PRN (11:50)
[2021-03-23] MEDS ORDERED: POLYVINYL ALCOHOL 1.4% OPH SOLN 15 ML BOTTLE BOTH EYES PRN (11:53)
[2021-03-23] MEDS ORDERED: SODIUM CHLORIDE 0.65% NASAL SPRAY 45 ML BOTTLE BOTH NARES PRN (11:53)
[2021-03-23] MEDS ORDERED: ALBUTEROL/IPRATROPIUM 3 ML NEB RESP TX SCH (12:00)
[2021-03-23 12:26] LABS: Allen Test Positive; Pt O2 Delivery Device Simple Mask
[2021-03-23 12:29] LABS: ABG Base Excess -8.7 MMOL/L (-2.5-2.5); ABG HCO3 29.9 MMOL/L (20-26); ABG Oxygen Saturation 82.3 % (95-100); ABG PH 6.786 (7.35-7.45); ABG PO2 64.7 MM HG (80-95); ABG TCO2 36.1 MMOL/L (23-27)
[2021-03-23] MEDS ORDERED: cefTRIAXone 1,000 MG in SODIUM CHLORIDE 0.9% 100 ML IV SCH (12:30)
[2021-03-23 12:32] LABS: ABG PCO2 202.7 MM HG (35-48)
[2021-03-23] MEDS ORDERED: NOREPINEPHRINE 4 MG/4 ML VIAL IV ONE ×3 (12:43→16:58)
[2021-03-23] MEDS: NOREPINEPHRINE 8 MG in SODIUM CHLORIDE 0.9% 242 ML IV PRN ×4 (12:47→22:43)
[2021-03-23] MEDS ORDERED: SODIUM BICARBONATE 50 MEQ/50 ML VIAL IV ONE ×3 (12:49→22:35)
[2021-03-23] MEDS: HYDROCORTISONE 100 MG VIAL IV SCH ×2 (13:16→20:41)
[2021-03-23 13:27] LABS: ABG Base Excess -5.7 MMOL/L (-2.5-2.5); ABG HCO3 19.8 MMOL/L (20-26); ABG Oxygen Saturation 99.7 % (95-100); ABG TCO2 24.4 MMOL/L (23-27)
[2021-03-23] MEDS ORDERED: NOREPINEPHRINE 8 MG in SODIUM CHLORIDE 0.9% 242 ML IV PRN (13:27)
[2021-03-23 13:29] LABS: ABG PCO2 80.9 MM HG (35-48); ABG PH 7.124 (7.35-7.45)
[2021-03-23] MEDS ORDERED: ETOMIDATE 20 MG/10 ML VIAL IV ONE (14:00)
[2021-03-23] MEDS ORDERED: ROCURONIUM 100 MG/10 ML VIAL IV ONE (14:00)
[2021-03-23] MEDS: HEPARIN 5,000 UNIT/1 ML VIAL SUBCUT SCH (14:35)
[2021-03-23 14:47] LABS: ABG Base Excess -5.2 MMOL/L (-2.5-2.5); ABG HCO3 20.2 MMOL/L (20-26); ABG Oxygen Saturation 99.7 % (95-100); ABG PCO2 39.6 MM HG (35-48); ABG PH 7.323 (7.35-7.45); Allen Test Positive; Pt O2 Delivery Device Ventilator
[2021-03-23] MEDS: SODIUM CHLORIDE 0.9% 1,000 ML IV SCH (17:20)
[2021-03-23] MEDS ORDERED: INFLUENZA VIRUS VACCINE 0.5 ML SYRINGE IM ONE (18:17)
[2021-03-23] MEDS: ALBUTEROL/IPRATROPIUM 3 ML NEB RESP TX SCH (18:56)
[2021-03-23] MEDS: DOCUSATE SODIUM 100 MG CAPSULE PO SCH (20:41)
[2021-03-23] MEDS: cilostazoL 50 MG TABLET PO SCH (20:41)
[2021-03-23] MEDS: TAMSULOSIN 0.4 MG CAPSULE PO SCH (20:41)
[2021-03-23] MEDS ORDERED: LORazepam 2 MG/1 ML VIAL IV ONE (21:40)
[2021-03-23] MEDS ORDERED: PHENYLEPHRINE DRIP 40 MG/250 ML PREMIX IV ONE (21:41)
[2021-03-23] MEDS ORDERED: LORazepam 2 MG/1 ML VIAL ONE (21:41)
[2021-03-23 21:49] LABS: Basophils % 0.1 % (0.0-0.8); Hematocrit 44.1 VOL% (42.0-52.0); Hemoglobin 13.7 GM/DL (14.0-18.0); Immature Granulocytes % 0.9 %; Immature Granulocytes Absolute 0.22 #; Lymphocytes # 0.2 10*3/uL (1.4-4.0); Lymphocytes % 0.8 % (21.2-54.2); Mean Corpuscular HGB Conc 31.1 GM/DL (32-36); Mean Corpuscular Volume 98.7 FL (87-102); Mean Platelet Volume 10.9 FL (9.6-12.0); Monocytes % 5.1 % (1.7-12.7); Neutrophils % 93.1 % (38.7-73.9); Platelet Count 285 T/CUMM (130-400); Red Blood Count 4.47 MC/CUMM (3.8-5.5); Red Cell Distribution Width 14.1 % (9.3-17.3); White Blood Count 25.4 T/CUMM (4-12)
[2021-03-23 22:06] LABS: Albumin 2.6 G/DL (3.4-5.0); Bilirubin,Total 0.4 MG/DL (0.20-1.00); Calcium 8.2 MG/DL (8.5-10.1); Osmolality,Calculated 307.1 MOS/KG (273-304); Potassium 3.7 MMOL/L (3.5-5.1); Total Protein 6.8 G/DL (6.4-8.2)
[2021-03-23 22:22] LABS: ABG Base Excess -6.5 MMOL/L (-2.5-2.5); ABG HCO3 19.1 MMOL/L (20-26); ABG Oxygen Saturation 93.4 % (95-100); ABG PCO2 44.2 MM HG (35-48); ABG PH 7.273 (7.35-7.45); ABG PO2 70.9 MM HG (80-95)
[2021-03-23] MEDS: PHENYLEPHRINE DRIP 40 MG/250 ML PREMIX IV PRN (22:55)
[2021-03-24] MEDS: SODIUM CHLORIDE 0.9% 1,000 ML IV SCH ×5 (00:15→21:05)
[2021-03-24] MEDS: HEPARIN 5,000 UNIT/1 ML VIAL SUBCUT SCH ×3 (00:45→23:54)
[2021-03-24] MEDS: ALBUTEROL/IPRATROPIUM 3 ML NEB RESP TX SCH ×4 (00:55→19:47)
[2021-03-24 01:17] LABS: ABG Base Excess -2.8 MMOL/L (-2.5-2.5); ABG HCO3 22.1 MMOL/L (20-26); ABG Oxygen Saturation 95.1 % (95-100); ABG PH 7.395 (7.35-7.45); ABG PO2 69.3 MM HG (80-95); ABG TCO2 18.7 MMOL/L (23-27)
[2021-03-24] MEDS ORDERED: LORazepam 2 MG/1 ML VIAL IV ONE (01:33)
[2021-03-24] MEDS: NOREPINEPHRINE 16 MG in SODIUM CHLORIDE 0.9% 234 ML IV PRN ×3 (01:45→11:11)
[2021-03-24] MEDS ORDERED: LORazepam 2 MG/1 ML VIAL IV PRN (02:00)
[2021-03-24] MEDS: PHENYLEPHRINE DRIP 40 MG/250 ML PREMIX IV PRN (02:04)
[2021-03-24 02:43] LABS: Lymphocytes 1 % (20-55); Segmented Neutrophils 95 % (50-85); Total Cells Counted 100
[2021-03-24 02:44] LABS: Burr Cells 1+; Platelet Estimate Normal
[2021-03-24] MEDS: MIDAZOLAM 100 MG in SODIUM CHLORIDE 0.9% 80 ML IV PRN (02:53)
[2021-03-24 04:58] LABS: ABG Base Excess -3.2 MMOL/L (-2.5-2.5); ABG HCO3 21.7 MMOL/L (20-26); ABG Oxygen Saturation 95.3 % (95-100); ABG PCO2 35.7 MM HG (35-48); ABG PH 7.383 (7.35-7.45); ABG PO2 74.3 MM HG (80-95); ABG TCO2 18.2 MMOL/L (23-27)
[2021-03-24 05:00] LABS: Basophils % 0.1 % (0.0-0.8); Eosinophils % 0.1 % (0.00-10.9); Hematocrit 43.9 VOL% (42.0-52.0); Hemoglobin 13.8 GM/DL (14.0-18.0); Immature Granulocytes % 0.8 %; Immature Granulocytes Absolute 0.16 #; Lymphocytes # 0.6 10*3/uL (1.4-4.0); Lymphocytes % 3.1 % (21.2-54.2); Mean Corpuscular HGB Conc 31.4 GM/DL (32-36); Mean Corpuscular Volume 97.3 FL (87-102); Mean Platelet Volume 10.9 FL (9.6-12.0); Monocytes % 7.1 % (1.7-12.7); Neutrophils % 88.8 % (38.7-73.9); Platelet Count 294 T/CUMM (130-400); Red Blood Count 4.51 MC/CUMM (3.8-5.5); Red Cell Distribution Width 14.5 % (9.3-17.3); White Blood Count 19.1 T/CUMM (4-12)
[2021-03-24 05:12] LABS: Calcium 8.6 MG/DL (8.5-10.1); Osmolality,Calculated 306.1 MOS/KG (273-304); Potassium 3.7 MMOL/L (3.5-5.1)
[2021-03-24 05:21] LABS: Eosinophils 1 % (0-10); Hypochromasia Slight; Lymphocytes 5 % (20-55); Microcytosis Slight; Platelet Estimate Adequate; Segmented Neutrophils 88 % (50-85); Total Cells Counted 100
[2021-03-24] MEDS: ACETAMINOPHEN 325 MG TABLET PO PRN ×2 (05:27→20:07)
[2021-03-24] MEDS: MONTELUKAST 10 MG TABLET PO SCH (05:27)
[2021-03-24] MEDS: HYDROCORTISONE 100 MG VIAL IV SCH ×3 (05:27→20:06)
[2021-03-24] MEDS: cilostazoL 50 MG TABLET PO SCH ×2 (09:44→20:06)
[2021-03-24] MEDS: DOCUSATE SODIUM 100 MG/10 ML UDCUP PO SCH ×2 (09:44→20:06)
[2021-03-24] MEDS: ASPIRIN 325 MG TABLET PO SCH (09:44)
[2021-03-24] MEDS: ROSUVASTATIN 20 MG TABLET PO SCH (09:44)
[2021-03-24] MEDS: LACTULOSE 20 GM/30 ML UDCUP PO SCH (09:45)
[2021-03-24] MEDS: PANTOPRAZOLE 40 MG VIAL IV SCH (09:52)
[2021-03-24] MEDS: CEFEPIME 1,000 MG in SODIUM CHLORIDE 0.9% 100 ML IV SCH ×2 (09:52→20:07)
[2021-03-24] MEDS: DOCUSATE SODIUM 100 MG CAPSULE PO SCH (10:25)
[2021-03-24 10:29] LABS: ABG HCO3 22.8 MMOL/L (20-26); ABG Oxygen Saturation 99.1 % (95-100); ABG PCO2 33.9 MM HG (35-48); ABG PH 7.417 (7.35-7.45); ABG TCO2 19.1 MMOL/L (23-27)
[2021-03-24] MEDS: DESITIN 4OZ/NYSTATIN 15 GRAM MIXTURE PASTE TOP SCH ×2 (16:05→20:06)
[2021-03-24] MEDS: TAMSULOSIN 0.4 MG CAPSULE PO SCH (20:06)
[2021-03-25 03:17] LABS: ABG Base Excess -1.8 MMOL/L (-2.5-2.5); ABG HCO3 22.9 MMOL/L (20-26); ABG Oxygen Saturation 99.4 % (95-100); ABG PCO2 37.4 MM HG (35-48); ABG PH 7.392 (7.35-7.45); ABG TCO2 20.6 MMOL/L (23-27)
[2021-03-25 03:27] LABS: Basophils % 0.1 % (0.0-0.8); Eosinophils % 0.1 % (0.00-10.9); Hematocrit 33.3 VOL% (42.0-52.0); Immature Granulocytes % 0.6 %; Immature Granulocytes Absolute 0.07 #; Lymphocytes # 0.5 10*3/uL (1.4-4.0); Lymphocytes % 4.5 % (21.2-54.2); Mean Corpuscular HGB Conc 30.6 GM/DL (32-36); Mean Corpuscular Volume 98.2 FL (87-102); Mean Platelet Volume 10.9 FL (9.6-12.0); Monocytes % 4.4 % (1.7-12.7); Neutrophils % 90.3 % (38.7-73.9); Red Blood Count 3.39 MC/CUMM (3.8-5.5)
[2021-03-25 03:30] LABS: Hemoglobin 10.2 GM/DL (14.0-18.0); Platelet Count 181 T/CUMM (130-400); White Blood Count 11.7 T/CUMM (4-12)
[2021-03-25] MEDS: ALBUTEROL/IPRATROPIUM 3 ML NEB RESP TX SCH ×4 (03:30→18:20)
[2021-03-25 03:35] LABS: Calcium 8.2 MG/DL (8.5-10.1); Potassium 3.1 MMOL/L (3.5-5.1)
[2021-03-25 03:48] LABS: Lymphocytes 3 % (20-55); Platelet Estimate Adequate; Segmented Neutrophils 93 % (50-85); Total Cells Counted 100
[2021-03-25] MEDS: SODIUM CHLORIDE 0.9% 1,000 ML IV SCH (04:16)
[2021-03-25] MEDS: POTASSIUM BICARB EFFERVESCENT 20 MEQ TAB.EFF PER TUBE PRN ×3 (04:42→17:33)
[2021-03-25] MEDS: MONTELUKAST 10 MG TABLET PO SCH (05:25)
[2021-03-25] MEDS: HYDROCORTISONE 100 MG VIAL IV SCH ×3 (05:26→20:42)
[2021-03-25] MEDS: cilostazoL 50 MG TABLET PO SCH ×2 (09:34→20:42)
[2021-03-25] MEDS: LACTULOSE 20 GM/30 ML UDCUP PO SCH (09:35)
[2021-03-25] MEDS: DOCUSATE SODIUM 100 MG/10 ML UDCUP PO SCH ×2 (09:35→20:42)
[2021-03-25] MEDS: ASPIRIN 325 MG TABLET PO SCH (09:35)
[2021-03-25] MEDS: ROSUVASTATIN 20 MG TABLET PO SCH (09:35)
[2021-03-25] MEDS: PANTOPRAZOLE 40 MG VIAL IV SCH (09:41)
[2021-03-25] MEDS: DESITIN 4OZ/NYSTATIN 15 GRAM MIXTURE PASTE TOP SCH ×2 (09:58→20:42)
[2021-03-25] MEDS: CEFEPIME 1,000 MG in SODIUM CHLORIDE 0.9% 100 ML IV SCH ×2 (09:58→17:31)
[2021-03-25] MEDS: HEPARIN 5,000 UNIT/1 ML VIAL SUBCUT SCH (13:31)
[2021-03-25] MEDS ORDERED: POTASSIUM PHOSPHATE 30 MMOL in SODIUM CHLORIDE 0.9% 250 ML IV ONE (18:36)
[2021-03-25] MEDS ORDERED: VANCOMYCIN INJ 2,500 MG in SODIUM CHLORIDE 0.9% 500 ML IV ONE (21:00)
[2021-03-26] MEDS: HEPARIN 5,000 UNIT/1 ML VIAL SUBCUT SCH ×3 (00:20→23:05)
[2021-03-26] MEDS: ALBUTEROL/IPRATROPIUM 3 ML NEB RESP TX SCH ×4 (00:29→19:28)
[2021-03-26] MEDS: CEFEPIME 1,000 MG in SODIUM CHLORIDE 0.9% 100 ML IV SCH (01:33)
[2021-03-26 04:06] LABS: ABG Base Excess 0.3 MMOL/L (-2.5-2.5); ABG HCO3 24.7 MMOL/L (20-26); ABG Oxygen Saturation 99.2 % (95-100); ABG PCO2 39.4 MM HG (35-48); ABG PH 7.408 (7.35-7.45); ABG TCO2 22.4 MMOL/L (23-27)
[2021-03-26 04:23] LABS: Basophils % 0.1 % (0.0-0.8); Eosinophils % 0.1 % (0.00-10.9); Hematocrit 33.4 VOL% (42.0-52.0); Hemoglobin 10.1 GM/DL (14.0-18.0); Immature Granulocytes % 0.6 %; Immature Granulocytes Absolute 0.08 #; Lymphocytes # 0.7 10*3/uL (1.4-4.0); Lymphocytes % 4.7 % (21.2-54.2); Mean Corpuscular HGB Conc 30.2 GM/DL (32-36); Mean Corpuscular Volume 98.2 FL (87-102); Mean Platelet Volume 10.8 FL (9.6-12.0); Monocytes % 5.2 % (1.7-12.7); Neutrophils % 89.3 % (38.7-73.9); Platelet Count 182 T/CUMM (130-400); Red Cell Distribution Width 15.5 % (9.3-17.3); White Blood Count 14.4 T/CUMM (4-12)
[2021-03-26 04:27] LABS: Calcium 8.5 MG/DL (8.5-10.1); Osmolality,Calculated 304.4 MOS/KG (273-304); Potassium 4.2 MMOL/L (3.5-5.1)
[2021-03-26 04:52] LABS: Lymphocytes 5 % (20-55); Nucleated Red Blood Cells 1 (0-5); Platelet Estimate Normal; Segmented Neutrophils 92 % (50-85); Total Cells Counted 100
[2021-03-26] MEDS: HYDROCORTISONE 100 MG VIAL IV SCH ×3 (05:25→20:45)
[2021-03-26] MEDS: MONTELUKAST 10 MG TABLET PO SCH (05:26)
[2021-03-26] MEDS: ROSUVASTATIN 20 MG TABLET PO SCH (09:55)
[2021-03-26] MEDS: cilostazoL 50 MG TABLET PO SCH ×2 (09:55→20:45)
[2021-03-26] MEDS: ASPIRIN 325 MG TABLET PO SCH (09:55)
[2021-03-26] MEDS: DOCUSATE SODIUM 100 MG/10 ML UDCUP PO SCH ×2 (09:55→20:45)
[2021-03-26] MEDS: LACTULOSE 20 GM/30 ML UDCUP PO SCH (09:55)
[2021-03-26] MEDS: GABAPENTIN 300 MG CAPSULE PO SCH ×2 (09:56→20:45)
[2021-03-26] MEDS: PANTOPRAZOLE 40 MG VIAL IV SCH (09:56)
[2021-03-26] MEDS: DESITIN 4OZ/NYSTATIN 15 GRAM MIXTURE PASTE TOP SCH ×2 (09:58→20:45)
[2021-03-26] MEDS ORDERED: FUROSEMIDE 40 MG/4 ML VIAL IV ONE (15:52)
[2021-03-26] MEDS ORDERED: LITHIUM 450 MG PO SCH (18:00)
[2021-03-26] MEDS: VANCOMYCIN INJ 1,750 MG in SODIUM CHLORIDE 0.9% 500 ML IV SCH (20:44)
[2021-03-26] MEDS ORDERED: hydrALAZINE 20 MG/1 ML VIAL IV PRN (23:52)
[2021-03-27] MEDS: MIDAZOLAM 100 MG in SODIUM CHLORIDE 0.9% 80 ML IV PRN (00:02)
[2021-03-27] MEDS: ALBUTEROL/IPRATROPIUM 3 ML NEB RESP TX SCH ×4 (00:48→20:07)
[2021-03-27 04:25] LABS: ABG Base Excess 4.7 MMOL/L (-2.5-2.5); ABG HCO3 27.6 MMOL/L (20-26); ABG Oxygen Saturation 98.2 % (95-100); ABG PCO2 35.2 MM HG (35-48); ABG PH 7.513 (7.35-7.45); ABG PO2 115.3 MM HG (80-95); ABG TCO2 28.7 MMOL/L (23-27)
[2021-03-27 04:28] LABS: Basophils % 0.1 % (0.0-0.8); Eosinophils % 0.3 % (0.00-10.9); Hematocrit 32.3 VOL% (42.0-52.0); Hemoglobin 10.3 GM/DL (14.0-18.0); Immature Granulocytes % 0.4 %; Immature Granulocytes Absolute 0.05 #; Lymphocytes # 0.8 10*3/uL (1.4-4.0); Lymphocytes % 5.8 % (21.2-54.2); Mean Corpuscular HGB Conc 31.9 GM/DL (32-36); Mean Corpuscular Volume 96.7 FL (87-102); Mean Platelet Volume 10.3 FL (9.6-12.0); Neutrophils % 88.4 % (38.7-73.9); Platelet Count 165 T/CUMM (130-400); Red Blood Count 3.34 MC/CUMM (3.8-5.5); Red Cell Distribution Width 15.1 % (9.3-17.3); White Blood Count 13.8 T/CUMM (4-12)
[2021-03-27 04:44] LABS: Calcium 8.6 MG/DL (8.5-10.1); Potassium 3.8 MMOL/L (3.5-5.1)
[2021-03-27] MEDS: HYDROCORTISONE 100 MG VIAL IV SCH (05:12)
[2021-03-27] MEDS: MONTELUKAST 10 MG TABLET PO SCH (05:12)
[2021-03-27] MEDS: POTASSIUM BICARB EFFERVESCENT 20 MEQ TAB.EFF PER TUBE PRN (05:13)
[2021-03-27] MEDS: ASPIRIN 325 MG TABLET PO SCH (08:23)
[2021-03-27] MEDS: PANTOPRAZOLE 40 MG VIAL IV SCH (08:23)
[2021-03-27] MEDS: cilostazoL 50 MG TABLET PO SCH ×2 (08:23→20:21)
[2021-03-27] MEDS: LACTULOSE 20 GM/30 ML UDCUP PO SCH (08:23)
[2021-03-27] MEDS: GABAPENTIN 300 MG CAPSULE PO SCH ×2 (08:23→20:22)
[2021-03-27] MEDS: ROSUVASTATIN 20 MG TABLET PO SCH (08:23)
[2021-03-27] MEDS: DESITIN 4OZ/NYSTATIN 15 GRAM MIXTURE PASTE TOP SCH ×2 (08:24→20:22)
[2021-03-27] MEDS: DOCUSATE SODIUM 100 MG/10 ML UDCUP PO SCH ×2 (08:24→20:21)
[2021-03-27] MEDS ORDERED: methylPREDNISolone SOD SUC 40 MG/1 ML VIAL IV SCH ×2 (09:00→15:00)
[2021-03-27] MEDS ORDERED: FUROSEMIDE 40 MG/4 ML VIAL IV ONE (10:52)
[2021-03-27] MEDS: HEPARIN 5,000 UNIT/1 ML VIAL SUBCUT SCH (11:12)
[2021-03-27] MEDS: methylPREDNISolone SOD SUC 40 MG/1 ML VIAL IV SCH (20:21)
[2021-03-27] MEDS: VANCOMYCIN INJ 1,750 MG in SODIUM CHLORIDE 0.9% 500 ML IV SCH (20:22)
[2021-03-28] MEDS: HEPARIN 5,000 UNIT/1 ML VIAL SUBCUT SCH ×2 (00:19→14:20)
[2021-03-28] MEDS: ALBUTEROL/IPRATROPIUM 3 ML NEB RESP TX SCH ×4 (00:40→20:23)
[2021-03-28] MEDS: LORazepam 2 MG/1 ML VIAL IV PRN ×3 (00:50→07:22)
[2021-03-28 04:31] LABS: Basophils % 0.1 % (0.0-0.8); Hematocrit 34.8 VOL% (42.0-52.0); Hemoglobin 10.9 GM/DL (14.0-18.0); Immature Granulocytes % 1.1 %; Immature Granulocytes Absolute 0.13 #; Lymphocytes # 0.6 10*3/uL (1.4-4.0); Lymphocytes % 5.2 % (21.2-54.2); Mean Corpuscular HGB Conc 31.3 GM/DL (32-36); Mean Corpuscular Volume 95.9 FL (87-102); Mean Platelet Volume 10.6 FL (9.6-12.0); Monocytes % 4.2 % (1.7-12.7); Neutrophils % 89.4 % (38.7-73.9); Platelet Count 179 T/CUMM (130-400); Red Blood Count 3.63 MC/CUMM (3.8-5.5); Red Cell Distribution Width 14.6 % (9.3-17.3)
[2021-03-28 04:35] LABS: ABG Base Excess 7.5 MMOL/L (-2.5-2.5); ABG HCO3 31.4 MMOL/L (20-26); ABG PCO2 43.5 MM HG (35-48); ABG PH 7.474 (7.35-7.45); ABG TCO2 28.6 MMOL/L (23-27)
[2021-03-28 04:52] LABS: Alanine Aminotransferase 61 U/L (16-61); Albumin 2.1 G/DL (3.4-5.0); Alkaline Phosphatase 93 U/L (45-117); Aspartate Amino Transferase 32 U/L (0-37); Bilirubin,Direct < 0.100 MG/DL (0.0-0.20); Bilirubin,Indirect 0.3 MG/DL (0.0-1.0); Bilirubin,Total < 0.39 MG/DL (0.20-1.00); Blood Urea Nitrogen 36 MG/DL (7-18); Calcium 8.8 MG/DL (8.5-10.1); Carbon Dioxide 32 MMOL/L (21-32); Estimated Glom Filtration Rate 83 ML/MIN; Glucose 158 MG/DL (74-106); Osmolality,Calculated 293.1 MOS/KG (273-304); Potassium 4.3 MMOL/L (3.5-5.1); Sodium 142 MMOL/L (136-145); Total Protein 5.8 G/DL (6.4-8.2)
[2021-03-28] MEDS: MONTELUKAST 10 MG TABLET PO SCH (05:34)
[2021-03-28] MEDS: LACTULOSE 20 GM/30 ML UDCUP PO SCH (09:50)
[2021-03-28] MEDS: DOCUSATE SODIUM 100 MG/10 ML UDCUP PO SCH ×2 (09:50→20:22)
[2021-03-28] MEDS: GABAPENTIN 300 MG CAPSULE PO SCH ×2 (09:52→19:58)
[2021-03-28] MEDS: cilostazoL 50 MG TABLET PO SCH ×2 (09:52→19:58)
[2021-03-28] MEDS: ROSUVASTATIN 20 MG TABLET PO SCH (09:52)
[2021-03-28] MEDS: PANTOPRAZOLE 40 MG VIAL IV SCH (09:52)
[2021-03-28] MEDS: DESITIN 4OZ/NYSTATIN 15 GRAM MIXTURE PASTE TOP SCH ×2 (09:52→20:22)
[2021-03-28] MEDS: ASPIRIN 325 MG TABLET PO SCH (09:52)
[2021-03-28] MEDS: methylPREDNISolone SOD SUC 40 MG/1 ML VIAL IV SCH ×2 (09:52→20:22)
[2021-03-28] MEDS: LOSARTAN 50 MG TABLET PO SCH (10:47)
[2021-03-28] MEDS: VANCOMYCIN INJ 1,750 MG in SODIUM CHLORIDE 0.9% 500 ML IV SCH (20:41)
[2021-03-29] MEDS: HEPARIN 5,000 UNIT/1 ML VIAL SUBCUT SCH ×2 (00:04→11:27)
[2021-03-29] MEDS: ALBUTEROL/IPRATROPIUM 3 ML NEB RESP TX SCH ×4 (00:10→20:00)
[2021-03-29 04:24] LABS: ABG Base Excess 5.7 MMOL/L (-2.5-2.5); ABG HCO3 29.5 MMOL/L (20-26); ABG PCO2 51.9 MM HG (35-48); ABG PH 7.396 (7.35-7.45); ABG PO2 77.5 MM HG (80-95); ABG TCO2 28.4 MMOL/L (23-27)
[2021-03-29 05:24] LABS: Basophils % 0.1 % (0.0-0.8); Hematocrit 34.4 VOL% (42.0-52.0); Hemoglobin 10.7 GM/DL (14.0-18.0); Immature Granulocytes % 0.8 %; Lymphocytes # 0.7 10*3/uL (1.4-4.0); Lymphocytes % 5.1 % (21.2-54.2); Mean Corpuscular HGB Conc 31.1 GM/DL (32-36); Mean Corpuscular Volume 98.3 FL (87-102); Mean Platelet Volume 11.1 FL (9.6-12.0); Monocytes % 5.9 % (1.7-12.7); Neutrophils % 88.1 % (38.7-73.9); Platelet Count 144 T/CUMM (130-400); Red Cell Distribution Width 14.7 % (9.3-17.3)
[2021-03-29 05:43] LABS: Calcium 9.1 MG/DL (8.5-10.1); Potassium 4.4 MMOL/L (3.5-5.1)
[2021-03-29] MEDS: MONTELUKAST 10 MG TABLET PO SCH (06:27)
[2021-03-29] MEDS ORDERED: LOSARTAN 50 MG TABLET PO SCH (08:00)
[2021-03-29] MEDS: LOSARTAN 50 MG TABLET PO SCH (08:34)
[2021-03-29] MEDS: GABAPENTIN 300 MG CAPSULE PO SCH ×2 (08:34→20:33)
[2021-03-29] MEDS: DOCUSATE SODIUM 100 MG/10 ML UDCUP PO SCH ×2 (08:34→20:33)
[2021-03-29] MEDS: LACTULOSE 20 GM/30 ML UDCUP PO SCH (08:34)
[2021-03-29] MEDS: ROSUVASTATIN 20 MG TABLET PO SCH (08:34)
[2021-03-29] MEDS: cilostazoL 50 MG TABLET PO SCH ×2 (08:34→20:33)
[2021-03-29] MEDS: ASPIRIN 325 MG TABLET PO SCH (08:35)
[2021-03-29] MEDS: methylPREDNISolone SOD SUC 40 MG/1 ML VIAL IV SCH ×2 (08:35→20:32)
[2021-03-29] MEDS: PANTOPRAZOLE 40 MG VIAL IV SCH (08:36)
[2021-03-29] MEDS: DESITIN 4OZ/NYSTATIN 15 GRAM MIXTURE PASTE TOP SCH ×2 (08:43→20:34)
[2021-03-29] MEDS ORDERED: RIFAMPIN INJ 600 MG in SODIUM CHLORIDE 0.9% 100 ML IV SCH (09:00)
[2021-03-29 10:08] VITALS: BP 172/91
[2021-03-29] MEDS ORDERED: LITHIUM ER 300 MG TABLET PO ONE ×2 (18:00→21:00)
[2021-03-29] MEDS: SULFAMETHOX/TRIMETHOPRIM 800-160 MG TABLET PO SCH (20:33)
[2021-03-30] MEDS: HEPARIN 5,000 UNIT/1 ML VIAL SUBCUT SCH ×2 (00:13→13:14)
[2021-03-30] MEDS: LORazepam 2 MG/1 ML VIAL IV PRN ×2 (00:14→23:07)
[2021-03-30] MEDS: ALBUTEROL/IPRATROPIUM 3 ML NEB RESP TX SCH ×4 (01:45→18:20)
[2021-03-30 05:08] LABS: Basophils % 0.1 % (0.0-0.8); Hematocrit 35.9 VOL% (42.0-52.0); Immature Granulocytes % 0.9 %; Immature Granulocytes Absolute 0.11 #; Lymphocytes # 0.5 10*3/uL (1.4-4.0); Lymphocytes % 4.1 % (21.2-54.2); Mean Corpuscular HGB Conc 30.6 GM/DL (32-36); Mean Corpuscular Volume 99.4 FL (87-102); Mean Platelet Volume 10.7 FL (9.6-12.0); Neutrophils % 89.9 % (38.7-73.9); Platelet Count 181 T/CUMM (130-400); Red Blood Count 3.61 MC/CUMM (3.8-5.5); Red Cell Distribution Width 14.6 % (9.3-17.3); White Blood Count 12.6 T/CUMM (4-12)
[2021-03-30 05:28] LABS: Hypochromasia Slight; Lymphocytes 6 % (20-55); Microcytosis 1+; Ovalocytes Slight; Segmented Neutrophils 89 % (50-85); Total Cells Counted 100
[2021-03-30 05:31] LABS: Potassium 4.5 MMOL/L (3.5-5.1)
[2021-03-30] MEDS: MONTELUKAST 10 MG TABLET PO SCH (06:02)
[2021-03-30] MEDS: LOSARTAN 50 MG TABLET PO SCH (08:38)
[2021-03-30] MEDS: GABAPENTIN 300 MG CAPSULE PO SCH ×2 (08:38→20:09)
[2021-03-30] MEDS: ROSUVASTATIN 20 MG TABLET PO SCH (08:38)
[2021-03-30] MEDS: cilostazoL 50 MG TABLET PO SCH ×2 (08:38→20:09)
[2021-03-30] MEDS: LITHIUM ER 300 MG TABLET PO SCH (08:38)
[2021-03-30] MEDS: SULFAMETHOX/TRIMETHOPRIM 800-160 MG TABLET PO SCH ×2 (08:38→20:09)
[2021-03-30] MEDS: DOCUSATE SODIUM 100 MG/10 ML UDCUP PO SCH ×2 (08:39→20:09)
[2021-03-30] MEDS: PANTOPRAZOLE 40 MG VIAL IV SCH (08:39)
[2021-03-30] MEDS: ASPIRIN 325 MG TABLET PO SCH (08:40)
[2021-03-30] MEDS: methylPREDNISolone SOD SUC 40 MG/1 ML VIAL IV SCH ×2 (08:40→20:09)
[2021-03-30] MEDS: LACTULOSE 20 GM/30 ML UDCUP PO SCH (08:40)
[2021-03-30] MEDS: DESITIN 4OZ/NYSTATIN 15 GRAM MIXTURE PASTE TOP SCH ×2 (08:41→20:09)
[2021-03-30] MEDS: RIFAMPIN 300 MG CAPSULE PO SCH (08:46)
[2021-03-30] MEDS ORDERED: VANCOMYCIN INJ 1,750 MG in SODIUM CHLORIDE 0.9% 500 ML IV SCH (09:00)
[2021-03-30] MEDS ORDERED: TAMSULOSIN 0.4 MG CAPSULE PO SCH (21:00)
[2021-03-31] MEDS: HEPARIN 5,000 UNIT/1 ML VIAL SUBCUT SCH ×2 (01:04→12:41)
[2021-03-31] MEDS: ALBUTEROL/IPRATROPIUM 3 ML NEB RESP TX SCH ×2 (01:21→07:52)
[2021-03-31 05:10] LABS: Basophils % 0.1 % (0.0-0.8); Eosinophils # 0.1 10*3/uL (0.0-0.87); Hematocrit 34.6 VOL% (42.0-52.0); Hemoglobin 10.4 GM/DL (14.0-18.0); Immature Granulocytes % 0.7 %; Immature Granulocytes Absolute 0.08 #; Lymphocytes # 0.9 10*3/uL (1.4-4.0); Lymphocytes % 7.6 % (21.2-54.2); Mean Corpuscular HGB Conc 30.1 GM/DL (32-36); Mean Corpuscular Volume 100.6 FL (87-102); Mean Platelet Volume 10.6 FL (9.6-12.0); Monocytes % 6.2 % (1.7-12.7); Neutrophils % 84.4 % (38.7-73.9); Platelet Count 167 T/CUMM (130-400); Red Blood Count 3.44 MC/CUMM (3.8-5.5); Red Cell Distribution Width 14.6 % (9.3-17.3); White Blood Count 12.1 T/CUMM (4-12)
[2021-03-31 05:25] LABS: Calcium 8.9 MG/DL (8.5-10.1); Osmolality,Calculated 290.1 MOS/KG (273-304); Potassium 4.8 MMOL/L (3.5-5.1)
[2021-03-31] MEDS: MONTELUKAST 10 MG TABLET PO SCH (05:45)
[2021-03-31] MEDS: LITHIUM ER 300 MG TABLET PO SCH (08:58)
[2021-03-31] MEDS: RIFAMPIN 300 MG CAPSULE PO SCH (08:58)
[2021-03-31] MEDS: GABAPENTIN 300 MG CAPSULE PO SCH (08:58)
[2021-03-31] MEDS: ROSUVASTATIN 20 MG TABLET PO SCH (08:58)
[2021-03-31] MEDS: LOSARTAN 50 MG TABLET PO SCH (08:59)
[2021-03-31] MEDS: LACTULOSE 20 GM/30 ML UDCUP PO SCH ×2 (08:59→09:16)
[2021-03-31] MEDS: DOCUSATE SODIUM 100 MG/10 ML UDCUP PO SCH (08:59)
[2021-03-31] MEDS: methylPREDNISolone SOD SUC 40 MG/1 ML VIAL IV SCH (08:59)
[2021-03-31] MEDS: SULFAMETHOX/TRIMETHOPRIM 800-160 MG TABLET PO SCH (08:59)
[2021-03-31] MEDS: ASPIRIN 325 MG TABLET PO SCH (08:59)
[2021-03-31] MEDS: cilostazoL 50 MG TABLET PO SCH (08:59)
[2021-03-31] MEDS: PANTOPRAZOLE 40 MG VIAL IV SCH (09:00)
[2021-03-31] MEDS: DESITIN 4OZ/NYSTATIN 15 GRAM MIXTURE PASTE TOP SCH (09:01)
== END 2021-03-31 13:10 | DRG 870 ==
LOC: EDUNIT# → EDBD → N.ED 08:42 → N.EDINP 11:49 → SUATTDRO 11:49 → N.ICU 17:17
PROVIDERS: ADMIT Internal Medicine; ATTEND Family Medicine

== ENCOUNTER 2021-04-07 20:45 | Inpatient (IN) ==
[2021-04-07] MEDS ORDERED: NOREPINEPHRINE 16 MG in SODIUM CHLORIDE 0.9% 234 ML IV PRN (21:18)
[2021-04-07] MEDS ORDERED: methylPREDNISolone SOD SUC 125 MG/2 ML VIAL IV STA (21:18)
[2021-04-07] MEDS ORDERED: SODIUM CHLORIDE 0.9% 1,000 ML IV STA (21:18)
[2021-04-07] MEDS ORDERED: VANCOMYCIN INJ 1,000 MG in SODIUM CHLORIDE 0.9% 250 ML IV STA ×2 (21:18→22:02)
[2021-04-07] MEDS ORDERED: CLINDAMYCIN INJ 900 MG/50 ML PREMIX IV STA (21:21)
[2021-04-07 21:26] LABS: ABG Base Excess 3.2 MMOL/L (-2.5-2.5); ABG HCO3 27.1 MMOL/L (20-26); ABG Oxygen Saturation 91.5 % (95-100); ABG PCO2 61.7 MM HG (35-48); ABG PH 7.309 (7.35-7.45); ABG PO2 65.8 MM HG (80-95); ABG TCO2 28.3 MMOL/L (23-27)
[2021-04-07 21:28] LABS: Basophils % 0.1 % (0.0-0.8); Eosinophils # 0.1 10*3/uL (0.0-0.87); Eosinophils % 0.6 % (0.00-10.9); Hematocrit 37.9 VOL% (42.0-52.0); Hemoglobin 11.3 GM/DL (14.0-18.0); Immature Granulocytes % 0.6 %; Immature Granulocytes Absolute 0.08 #; Lymphocytes # 1.1 10*3/uL (1.4-4.0); Mean Corpuscular HGB Conc 29.8 GM/DL (32-36); Mean Corpuscular Volume 102.7 FL (87-102); Mean Platelet Volume 10.6 FL (9.6-12.0); Neutrophils % 85.7 % (38.7-73.9); Platelet Count 195 T/CUMM (130-400); Red Blood Count 3.69 MC/CUMM (3.8-5.5); Red Cell Distribution Width 14.6 % (9.3-17.3); White Blood Count 13.4 T/CUMM (4-12)
[2021-04-07 21:40] LABS: Alanine Aminotransferase 22 U/L (16-61); Albumin 2.9 G/DL (3.4-5.0); Alkaline Phosphatase 91 U/L (45-117); Aspartate Amino Transferase 10 U/L (0-37); Bilirubin,Total < 0.39 MG/DL (0.20-1.00); Blood Urea Nitrogen 24 MG/DL (7-18); Calcium 9.3 MG/DL (8.5-10.1); Carbon Dioxide 31 MMOL/L (21-32); Glucose 118 MG/DL (74-106); Osmolality,Calculated 283.4 MOS/KG (273-304); Potassium 5.2 MMOL/L (3.5-5.1); Sodium 140 MMOL/L (136-145); Total Protein 6.6 G/DL (6.4-8.2)
[2021-04-07 21:41] LABS: Estimated Glom Filtration Rate 0 ML/MIN
[2021-04-07] MEDS ORDERED: ETOMIDATE 20 MG/10 ML VIAL IV STA (21:43)
[2021-04-07] MEDS ORDERED: VECURONIUM 10 MG VIAL IV STA ×2 (21:44→22:17)
[2021-04-07 21:48] LABS: Glucose,Urine (UA) Negative (Negative); Protein,Urine 30 MG/DL; Urine Appearance CLEAR (Clear); Urine Color Yellow (Yellow); Urine Specific Gravity 1.025 (1.001-1.035)
[2021-04-07 21:49] LABS: Bacteria,Urine Few /HPF (Few); Bilirubin,Urine Negative (Negative); Blood, Urine Negative (Negative); Ketones,Urine Negative (Negative); Mucus,Urine TRACE /LPF (Occasional); Nitrite,Urine Negative (Negative); Squamous Epithelial Cell,Urine Few /HPF (0-10); Urine Urobilinogen 0.2 EU/DL (0.2-1.0)
[2021-04-07 21:53] LABS: PT Patient Result 11.1 SECS (10.5-12.0)
[2021-04-07] MEDS ORDERED: MIDAZOLAM 2 MG/2 ML VIAL ONE (21:59)
[2021-04-07] MEDS ORDERED: NOREPINEPHRINE 4 MG/4 ML VIAL IV ONE (22:01)
[2021-04-07] MEDS ORDERED: MIDAZOLAM 2 MG/2 ML VIAL IV STA (22:17)
[2021-04-07] MEDS ORDERED: NOREPINEPHRINE 8 MG in SODIUM CHLORIDE 0.9% 242 ML IV PRN (22:30)
[2021-04-07 23:51] LABS: ABG Base Excess 2.3 MMOL/L (-2.5-2.5); ABG HCO3 26.3 MMOL/L (20-26); ABG Oxygen Saturation 93.5 % (95-100); ABG PCO2 42.3 MM HG (35-48); ABG PH 7.415 (7.35-7.45); ABG PO2 63.9 MM HG (80-95); ABG TCO2 24.2 MMOL/L (23-27)
[2021-04-08] MEDS ORDERED: ACETAMINOPHEN 325 MG TABLET PO PRN (01:15)
[2021-04-08] MEDS ORDERED: ALBUTEROL 2.5 MG/3 ML NEB RESP TX PRN (01:15)
[2021-04-08] MEDS ORDERED: ONDANSETRON 4 MG/2 ML VIAL IV PRN (01:15)
[2021-04-08] MEDS ORDERED: DOCUSATE SODIUM 100 MG CAPSULE PO PRN (01:15)
[2021-04-08] MEDS: ENOXAPARIN 40 MG/0.4 ML SYRINGE SUBCUT SCH (02:44)
[2021-04-08] MEDS: PANTOPRAZOLE 40 MG VIAL IV SCH (02:44)
[2021-04-08] MEDS: SODIUM CHLORIDE 0.9% 1,000 ML IV SCH ×3 (02:45→20:28)
[2021-04-08] MEDS: MEROPENEM 500 MG in SODIUM CHLORIDE 0.9% 100 ML IV SCH ×4 (02:47→20:34)
[2021-04-08 04:13] LABS: ABG Base Excess 2.4 MMOL/L (-2.5-2.5); ABG HCO3 26.6 MMOL/L (20-26); ABG Oxygen Saturation 98.1 % (95-100); ABG PCO2 37.2 MM HG (35-48); ABG PH 7.456 (7.35-7.45); ABG PO2 96.5 MM HG (80-95); ABG TCO2 23.6 MMOL/L (23-27)
[2021-04-08] MEDS ORDERED: [UNRECOGNIZED DRUG - OTHER] IM PRN (04:57)
[2021-04-08] MEDS ORDERED: PALIPERIDONE PALMITATE 234 MG/1.5 ML IM PRN (04:57)
[2021-04-08] MEDS ORDERED: PALIPERIDONE PALMITATE 156 MG/ML IM SCH (05:00)
[2021-04-08] MEDS: fentaNYL INJ 1,250 MCG in SODIUM CHLORIDE 0.9% 225 ML IV PRN ×2 (06:01→21:30)
[2021-04-08] MEDS: MIDAZOLAM 100 MG in SODIUM CHLORIDE 0.9% 80 ML IV PRN ×2 (06:05→18:34)
[2021-04-08 06:58] LABS: Basophils % 0.1 % (0.0-0.8); Eosinophils % 0.1 % (0.00-10.9); Hematocrit 34.5 VOL% (42.0-52.0); Hemoglobin 10.4 GM/DL (14.0-18.0); Immature Granulocytes % 1.1 %; Immature Granulocytes Absolute 0.17 #; Lymphocytes # 0.4 10*3/uL (1.4-4.0); Lymphocytes % 2.3 % (21.2-54.2); Mean Corpuscular HGB Conc 30.1 GM/DL (32-36); Mean Corpuscular Volume 100.3 FL (87-102); Mean Platelet Volume 10.9 FL (9.6-12.0); Monocytes % 1.6 % (1.7-12.7); Neutrophils % 94.8 % (38.7-73.9); Platelet Count 185 T/CUMM (130-400); Red Blood Count 3.44 MC/CUMM (3.8-5.5); White Blood Count 15.4 T/CUMM (4-12)
[2021-04-08 07:18] LABS: Albumin 2.4 G/DL (3.4-5.0); Bilirubin,Total 0.8 MG/DL (0.20-1.00); Calcium 9.3 MG/DL (8.5-10.1); Osmolality,Calculated 284.4 MOS/KG (273-304); Potassium 5.1 MMOL/L (3.5-5.1); Total Protein 6.3 G/DL (6.4-8.2)
[2021-04-08 07:21] LABS: Anisocytosis 1+; Band Neutrophils 7 % (0-10); Lymphocytes 1 % (20-55); Macrocytosis 1+; Platelet Estimate Normal; Segmented Neutrophils 91 % (50-85); Total Cells Counted 100
[2021-04-08] MEDS ORDERED: LORazepam 2 MG/1 ML VIAL IV ONE (08:39)
[2021-04-08] MEDS ORDERED: VANCOMYCIN INJ 1,500 MG in SODIUM CHLORIDE 0.9% 250 ML IV SCH (09:00)
[2021-04-08] MEDS ORDERED: VANCOMYCIN INJ 1,500 MG in SODIUM CHLORIDE 0.9% 500 ML IV SCH (09:00)
[2021-04-08] MEDS: ASPIRIN 325 MG TABLET PO SCH (09:27)
[2021-04-08] MEDS: ROSUVASTATIN 20 MG TABLET PO SCH (09:28)
[2021-04-08] MEDS: ZINC GLUCONATE 50 MG TABLET PO SCH (09:28)
[2021-04-08] MEDS: cilostazoL 50 MG TABLET PO SCH ×2 (09:28→20:35)
[2021-04-08] MEDS: methylPREDNISolone SOD SUC 40 MG/1 ML VIAL IV SCH ×2 (09:28→16:55)
[2021-04-08] MEDS: LACTULOSE 20 GM/30 ML UDCUP PO SCH (09:29)
[2021-04-08] MEDS: LINEZOLID INJ 600 MG/300 ML PREMIX IV SCH ×2 (11:05→22:50)
[2021-04-08] MEDS: GABAPENTIN 300 MG CAPSULE PO SCH ×2 (12:10→20:35)
[2021-04-08] MEDS: ASCORBIC ACID 500 MG TABLET PO SCH (12:10)
[2021-04-08] MEDS: ALBUTEROL/IPRATROPIUM 3 ML NEB RESP TX SCH ×2 (16:11→18:53)
[2021-04-08] MEDS: FLUCONAZOLE INJ 200 MG/100 ML PREMIX IV SCH (16:54)
[2021-04-08] MEDS ORDERED: LITHIUM 450 MG PO SCH (18:00)
[2021-04-08] MEDS: hydrALAZINE 20 MG/1 ML VIAL IV PRN (18:35)
[2021-04-09] MEDS: ALBUTEROL/IPRATROPIUM 3 ML NEB RESP TX SCH ×4 (01:10→19:38)
[2021-04-09] MEDS: methylPREDNISolone SOD SUC 40 MG/1 ML VIAL IV SCH ×3 (01:44→16:25)
[2021-04-09] MEDS: PANTOPRAZOLE 40 MG VIAL IV SCH (01:46)
[2021-04-09] MEDS: MEROPENEM 500 MG in SODIUM CHLORIDE 0.9% 100 ML IV SCH ×4 (01:47→20:52)
[2021-04-09] MEDS: ENOXAPARIN 40 MG/0.4 ML SYRINGE SUBCUT SCH (02:14)
[2021-04-09 04:16] LABS: ABG Base Excess 0.6 MMOL/L (-2.5-2.5); ABG HCO3 23.5 MMOL/L (20-26); ABG Oxygen Saturation 99.2 % (95-100); ABG PCO2 31.9 MM HG (35-48); ABG PH 7.485 (7.35-7.45); ABG PO2 246.9 MM HG (80-95); ABG TCO2 24.5 MMOL/L (23-27)
[2021-04-09] MEDS: SODIUM CHLORIDE 0.9% 1,000 ML IV SCH ×2 (04:23→12:15)
[2021-04-09 06:37] LABS: Hematocrit 32.4 VOL% (42.0-52.0); Hemoglobin 10.2 GM/DL (14.0-18.0); Immature Granulocytes % 0.6 %; Immature Granulocytes Absolute 0.06 #; Lymphocytes # 0.4 10*3/uL (1.4-4.0); Lymphocytes % 4.3 % (21.2-54.2); Mean Corpuscular HGB Conc 31.5 GM/DL (32-36); Mean Corpuscular Volume 97.3 FL (87-102); Mean Platelet Volume 10.4 FL (9.6-12.0); Monocytes % 1.6 % (1.7-12.7); Neutrophils % 93.5 % (38.7-73.9); Platelet Count 169 T/CUMM (130-400); Red Blood Count 3.33 MC/CUMM (3.8-5.5); Red Cell Distribution Width 14.4 % (9.3-17.3); White Blood Count 9.9 T/CUMM (4-12)
[2021-04-09 06:58] LABS: Albumin 2.2 G/DL (3.4-5.0); Bilirubin,Total 0.5 MG/DL (0.20-1.00); Osmolality,Calculated 287.3 MOS/KG (273-304); Potassium 4.7 MMOL/L (3.5-5.1); Total Protein 5.9 G/DL (6.4-8.2)
[2021-04-09 07:00] LABS: Lymphocytes 3 % (20-55); Platelet Estimate Adequate; Segmented Neutrophils 94 % (50-85); Total Cells Counted 100
[2021-04-09 07:01] LABS: Hypochromasia 1+; Microcytosis 1+
[2021-04-09] MEDS: MIDAZOLAM 100 MG in SODIUM CHLORIDE 0.9% 80 ML IV PRN ×2 (08:00→22:00)
[2021-04-09] MEDS ORDERED: LORazepam 2 MG/1 ML VIAL ONE (08:42)
[2021-04-09] MEDS ORDERED: LORazepam 2 MG/1 ML VIAL IV ONE (08:45)
[2021-04-09] MEDS: ASCORBIC ACID 500 MG TABLET PO SCH (09:00)
[2021-04-09] MEDS: cilostazoL 50 MG TABLET PO SCH ×2 (09:00→20:53)
[2021-04-09] MEDS: ZINC GLUCONATE 50 MG TABLET PO SCH (09:00)
[2021-04-09] MEDS: ASPIRIN 325 MG TABLET PO SCH (09:00)
[2021-04-09] MEDS: GABAPENTIN 300 MG CAPSULE PO SCH ×2 (09:00→20:53)
[2021-04-09] MEDS: ROSUVASTATIN 20 MG TABLET PO SCH (09:00)
[2021-04-09] MEDS: LINEZOLID INJ 600 MG/300 ML PREMIX IV SCH ×2 (09:33→23:15)
[2021-04-09] MEDS: fentaNYL INJ 1,250 MCG in SODIUM CHLORIDE 0.9% 225 ML IV PRN (12:20)
[2021-04-09] MEDS: FLUCONAZOLE INJ 200 MG/100 ML PREMIX IV SCH (13:13)
[2021-04-09] MEDS: INSULIN REGULAR 100 UNIT/ML SUBCUT SCH ×2 (17:00→23:46)
[2021-04-10] MEDS: ALBUTEROL/IPRATROPIUM 3 ML NEB RESP TX SCH ×4 (00:12→19:31)
[2021-04-10] MEDS: methylPREDNISolone SOD SUC 40 MG/1 ML VIAL IV SCH ×3 (01:50→17:02)
[2021-04-10] MEDS: MEROPENEM 500 MG in SODIUM CHLORIDE 0.9% 100 ML IV SCH ×4 (01:50→20:36)
[2021-04-10] MEDS: PANTOPRAZOLE 40 MG VIAL IV SCH (01:53)
[2021-04-10] MEDS: fentaNYL INJ 1,250 MCG in SODIUM CHLORIDE 0.9% 225 ML IV PRN ×2 (02:28→14:35)
[2021-04-10 03:56] LABS: ABG Base Excess 0.8 MMOL/L (-2.5-2.5); ABG HCO3 25.2 MMOL/L (20-26); ABG Oxygen Saturation 99.3 % (95-100); ABG PCO2 30.7 MM HG (35-48); ABG PH 7.493 (7.35-7.45); ABG TCO2 21.4 MMOL/L (23-27); Allen Test Positive; Pt O2 Delivery Device Ventilator
[2021-04-10] MEDS: ENOXAPARIN 40 MG/0.4 ML SYRINGE SUBCUT SCH (04:10)
[2021-04-10] MEDS: INSULIN REGULAR 100 UNIT/ML SUBCUT SCH ×3 (06:09→17:36)
[2021-04-10 06:10] LABS: Hematocrit 31.2 VOL% (42.0-52.0); Hemoglobin 9.8 GM/DL (14.0-18.0); Immature Granulocytes % 0.4 %; Immature Granulocytes Absolute 0.03 #; Lymphocytes # 0.5 10*3/uL (1.4-4.0); Lymphocytes % 6.6 % (21.2-54.2); Mean Corpuscular HGB Conc 31.4 GM/DL (32-36); Mean Corpuscular Volume 96.9 FL (87-102); Mean Platelet Volume 10.8 FL (9.6-12.0); Monocytes % 2.6 % (1.7-12.7); Neutrophils % 90.4 % (38.7-73.9); Platelet Count 186 T/CUMM (130-400); Red Blood Count 3.22 MC/CUMM (3.8-5.5); Red Cell Distribution Width 14.6 % (9.3-17.3)
[2021-04-10 06:31] LABS: Alanine Aminotransferase 20 U/L (16-61); Alkaline Phosphatase 67 U/L (45-117); Aspartate Amino Transferase 14 U/L (0-37); Bilirubin,Total < 0.39 MG/DL (0.20-1.00); Blood Urea Nitrogen 34 MG/DL (7-18); Calcium 8.9 MG/DL (8.5-10.1); Carbon Dioxide 22 MMOL/L (21-32); Estimated Glom Filtration Rate 94 ML/MIN; Glucose 123 MG/DL (74-106); Osmolality,Calculated 291.1 MOS/KG (273-304); Potassium 4.5 MMOL/L (3.5-5.1); Sodium 142 MMOL/L (136-145); Total Protein 5.7 G/DL (6.4-8.2)
[2021-04-10] MEDS ORDERED: FUROSEMIDE 40 MG/4 ML VIAL IV ONE (08:18)
[2021-04-10] MEDS: cilostazoL 50 MG TABLET PO SCH ×2 (08:37→20:35)
[2021-04-10] MEDS: ROSUVASTATIN 20 MG TABLET PO SCH (08:37)
[2021-04-10] MEDS: GABAPENTIN 300 MG CAPSULE PO SCH ×2 (08:37→20:35)
[2021-04-10] MEDS: ASPIRIN 325 MG TABLET PO SCH (08:37)
[2021-04-10] MEDS: ZINC GLUCONATE 50 MG TABLET PO SCH (08:38)
[2021-04-10] MEDS: ASCORBIC ACID 500 MG TABLET PO SCH (08:38)
[2021-04-10] MEDS: LINEZOLID INJ 600 MG/300 ML PREMIX IV SCH ×2 (09:13→22:33)
[2021-04-10] MEDS: METOCLOPRAMIDE 10 MG/2 ML VIAL IV SCH ×3 (12:33→23:59)
[2021-04-10] MEDS: FLUCONAZOLE INJ 200 MG/100 ML PREMIX IV SCH (13:10)
[2021-04-10] MEDS: hydrALAZINE 20 MG/1 ML VIAL IV PRN (13:10)
[2021-04-10] MEDS: MIDAZOLAM 100 MG in SODIUM CHLORIDE 0.9% 80 ML IV PRN (14:30)
[2021-04-11] MEDS: methylPREDNISolone SOD SUC 40 MG/1 ML VIAL IV SCH ×3 (00:02→18:37)
[2021-04-11] MEDS: fentaNYL INJ 1,250 MCG in SODIUM CHLORIDE 0.9% 225 ML IV PRN (06:25)
[2021-04-11] MEDS: ALBUTEROL/IPRATROPIUM 3 ML NEB RESP TX SCH ×4 (07:45→19:23)
[2021-04-11 12:57] LABS: ABG Base Excess -0.4 MMOL/L (-2.5-2.5); ABG HCO3 24.1 MMOL/L (20-26); ABG PCO2 33.2 MM HG (35-48); ABG TCO2 20.8 MMOL/L (23-27)
[2021-04-11] MEDS: ENOXAPARIN 40 MG/0.4 ML SYRINGE SUBCUT SCH (12:58)
[2021-04-11] MEDS: MEROPENEM 500 MG in SODIUM CHLORIDE 0.9% 100 ML IV SCH ×3 (12:58→20:46)
[2021-04-11] MEDS: PANTOPRAZOLE 40 MG VIAL IV SCH (12:58)
[2021-04-11] MEDS: METOCLOPRAMIDE 10 MG/2 ML VIAL IV SCH ×2 (12:59→18:39)
[2021-04-11] MEDS: GABAPENTIN 300 MG CAPSULE PO SCH ×2 (12:59→20:47)
[2021-04-11] MEDS: ASPIRIN 325 MG TABLET PO SCH (12:59)
[2021-04-11] MEDS: INSULIN REGULAR 100 UNIT/ML SUBCUT SCH ×3 (12:59→18:39)
[2021-04-11] MEDS: ROSUVASTATIN 20 MG TABLET PO SCH (12:59)
[2021-04-11] MEDS: cilostazoL 50 MG TABLET PO SCH ×2 (13:00→20:47)
[2021-04-11] MEDS: LINEZOLID INJ 600 MG/300 ML PREMIX IV SCH ×2 (13:00→22:05)
[2021-04-11] MEDS: ASCORBIC ACID 500 MG TABLET PO SCH (13:00)
[2021-04-11] MEDS: ZINC GLUCONATE 50 MG TABLET PO SCH (13:00)
[2021-04-11] MEDS: MIDAZOLAM 100 MG in SODIUM CHLORIDE 0.9% 80 ML IV PRN (13:01)
[2021-04-11 13:29] LABS: Hematocrit 30.9 VOL% (42.0-52.0); Hemoglobin 9.9 GM/DL (14.0-18.0); Immature Granulocytes % 0.4 %; Immature Granulocytes Absolute 0.02 #; Lymphocytes # 0.4 10*3/uL (1.4-4.0); Mean Corpuscular Volume 95.7 FL (87-102); Monocytes % 3.4 % (1.7-12.7); Neutrophils % 88.2 % (38.7-73.9); Platelet Count 182 T/CUMM (130-400); Red Blood Count 3.23 MC/CUMM (3.8-5.5); Red Cell Distribution Width 14.7 % (9.3-17.3); White Blood Count 4.7 T/CUMM (4-12)
[2021-04-11] MEDS: FLUCONAZOLE INJ 200 MG/100 ML PREMIX IV SCH (13:40)
[2021-04-11 15:31] LABS: Alanine Aminotransferase 28 U/L (16-61); Alkaline Phosphatase 62 U/L (45-117); Aspartate Amino Transferase 17 U/L (0-37); Calcium 8.8 MG/DL (8.5-10.1)
[2021-04-11 15:32] LABS: Bilirubin,Total < 0.39 MG/DL (0.20-1.00); Blood Urea Nitrogen 45 MG/DL (7-18); Carbon Dioxide 21 MMOL/L (21-32); Estimated Glom Filtration Rate 91 ML/MIN; Glucose 159 MG/DL (74-106); Osmolality,Calculated 297.1 MOS/KG (273-304); Potassium 3.9 MMOL/L (3.5-5.1); Sodium 142 MMOL/L (136-145); Total Protein 5.5 G/DL (6.4-8.2)
[2021-04-11] MEDS ORDERED: LITHIUM ER 300 MG TABLET PO SCH (18:00)
[2021-04-11] MEDS: LITHIUM 300 MG CAPSULE PO SCH (18:39)
[2021-04-12] MEDS: MIDAZOLAM 100 MG in SODIUM CHLORIDE 0.9% 80 ML IV PRN ×2 (00:05→23:20)
[2021-04-12] MEDS: methylPREDNISolone SOD SUC 40 MG/1 ML VIAL IV SCH ×3 (00:30→18:03)
[2021-04-12] MEDS: METOCLOPRAMIDE 10 MG/2 ML VIAL IV SCH ×4 (00:31→18:03)
[2021-04-12] MEDS: PANTOPRAZOLE 40 MG VIAL IV SCH (00:31)
[2021-04-12] MEDS: ALBUTEROL/IPRATROPIUM 3 ML NEB RESP TX SCH ×4 (01:02→19:40)
[2021-04-12] MEDS: INSULIN REGULAR 100 UNIT/ML SUBCUT SCH ×4 (01:07→18:03)
[2021-04-12] MEDS: MEROPENEM 500 MG in SODIUM CHLORIDE 0.9% 100 ML IV SCH ×4 (02:17→20:48)
[2021-04-12] MEDS: ENOXAPARIN 40 MG/0.4 ML SYRINGE SUBCUT SCH (02:18)
[2021-04-12 04:04] LABS: ABG Base Excess -1.6 MMOL/L (-2.5-2.5); ABG HCO3 22.3 MMOL/L (20-26); ABG Oxygen Saturation 97.6 % (95-100); ABG PCO2 34.5 MM HG (35-48); ABG PH 7.428 (7.35-7.45); ABG PO2 99.9 MM HG (80-95); ABG TCO2 23.3 MMOL/L (23-27)
[2021-04-12 06:12] LABS: Eosinophils % 0.2 % (0.00-10.9); Hemoglobin 10.7 GM/DL (14.0-18.0); Immature Granulocytes % 0.4 %; Immature Granulocytes Absolute 0.02 #; Lymphocytes # 0.3 10*3/uL (1.4-4.0); Lymphocytes % 5.5 % (21.2-54.2); Mean Corpuscular HGB Conc 31.5 GM/DL (32-36); Mean Corpuscular Volume 95.8 FL (87-102); Mean Platelet Volume 11.7 FL (9.6-12.0); Monocytes % 3.9 % (1.7-12.7); Platelet Count 126 T/CUMM (130-400); Red Blood Count 3.55 MC/CUMM (3.8-5.5); Red Cell Distribution Width 14.6 % (9.3-17.3); White Blood Count 4.9 T/CUMM (4-12)
[2021-04-12 06:31] LABS: Alanine Aminotransferase 31 U/L (16-61); Alkaline Phosphatase 69 U/L (45-117); Aspartate Amino Transferase 18 U/L (0-37); Bilirubin,Total < 0.39 MG/DL (0.20-1.00); Blood Urea Nitrogen 53 MG/DL (7-18); Calcium 8.7 MG/DL (8.5-10.1); Carbon Dioxide 22 MMOL/L (21-32); Estimated Glom Filtration Rate 110 ML/MIN; Glucose 139 MG/DL (74-106); Osmolality,Calculated 296.3 MOS/KG (273-304); Potassium 4.6 MMOL/L (3.5-5.1); Sodium 141 MMOL/L (136-145); Total Protein 5.4 G/DL (6.4-8.2)
[2021-04-12] MEDS: ROSUVASTATIN 20 MG TABLET PO SCH (08:40)
[2021-04-12] MEDS: LACTULOSE 20 GM/30 ML UDCUP PO SCH (08:40)
[2021-04-12] MEDS: cilostazoL 50 MG TABLET PO SCH ×2 (08:40→20:49)
[2021-04-12] MEDS: ASPIRIN 325 MG TABLET PO SCH (08:40)
[2021-04-12] MEDS: ZINC GLUCONATE 50 MG TABLET PO SCH (08:40)
[2021-04-12] MEDS: ASCORBIC ACID 500 MG TABLET PO SCH (08:41)
[2021-04-12] MEDS: GABAPENTIN 300 MG CAPSULE PO SCH ×2 (08:41→20:49)
[2021-04-12] MEDS: LINEZOLID INJ 600 MG/300 ML PREMIX IV SCH ×2 (09:04→22:40)
[2021-04-12] MEDS: FLUCONAZOLE INJ 200 MG/100 ML PREMIX IV SCH (15:31)
[2021-04-12] MEDS ORDERED: LITHIUM ER 300 MG TABLET PO SCH (18:00)
[2021-04-12] MEDS: LITHIUM 300 MG CAPSULE PO SCH (18:03)
[2021-04-13] MEDS: PANTOPRAZOLE 40 MG VIAL IV SCH (00:39)
[2021-04-13] MEDS: METOCLOPRAMIDE 10 MG/2 ML VIAL IV SCH ×4 (00:40→18:19)
[2021-04-13] MEDS: methylPREDNISolone SOD SUC 40 MG/1 ML VIAL IV SCH ×3 (00:40→16:55)
[2021-04-13] MEDS: INSULIN REGULAR 100 UNIT/ML SUBCUT SCH ×4 (00:40→18:49)
[2021-04-13] MEDS: ALBUTEROL/IPRATROPIUM 3 ML NEB RESP TX SCH ×4 (01:45→19:25)
[2021-04-13] MEDS: MEROPENEM 500 MG in SODIUM CHLORIDE 0.9% 100 ML IV SCH ×4 (02:00→19:46)
[2021-04-13] MEDS: ENOXAPARIN 40 MG/0.4 ML SYRINGE SUBCUT SCH (02:01)
[2021-04-13 03:55] LABS: ABG Base Excess 0.3 MMOL/L (-2.5-2.5); ABG HCO3 24.7 MMOL/L (20-26); ABG Oxygen Saturation 98.7 % (95-100); ABG PCO2 39.1 MM HG (35-48); ABG PH 7.411 (7.35-7.45); ABG TCO2 22.2 MMOL/L (23-27)
[2021-04-13 05:25] LABS: Hematocrit 34.2 VOL% (42.0-52.0); Hemoglobin 10.9 GM/DL (14.0-18.0); Immature Granulocytes % 0.6 %; Immature Granulocytes Absolute 0.04 #; Lymphocytes # 0.3 10*3/uL (1.4-4.0); Lymphocytes % 4.2 % (21.2-54.2); Mean Corpuscular HGB Conc 31.9 GM/DL (32-36); Mean Corpuscular Volume 95.3 FL (87-102); Mean Platelet Volume 10.9 FL (9.6-12.0); Monocytes % 3.5 % (1.7-12.7); Neutrophils % 91.7 % (38.7-73.9); Platelet Count 144 T/CUMM (130-400); Red Blood Count 3.59 MC/CUMM (3.8-5.5); Red Cell Distribution Width 14.7 % (9.3-17.3); White Blood Count 6.8 T/CUMM (4-12)
[2021-04-13 05:45] LABS: Calcium 6.8 MG/DL (8.5-10.1); Osmolality,Calculated 289.5 MOS/KG (273-304); Potassium 5.1 MMOL/L (3.5-5.1)
[2021-04-13 06:00] LABS: Hypochromasia Slight; Lymphocytes 2 % (20-55); Microcytosis 1+; Ovalocytes Slight; Segmented Neutrophils 97 % (50-85); Total Cells Counted 100
[2021-04-13 06:01] LABS: Acanthocytes Few; Platelet Estimate Adequate
[2021-04-13] MEDS ORDERED: CALCIUM GLUCONATE 2,000 MG in SODIUM CHLORIDE 0.9% 100 ML IV ONE (08:18)
[2021-04-13] MEDS: GABAPENTIN 300 MG CAPSULE PO SCH ×2 (08:26→19:47)
[2021-04-13] MEDS: ZINC GLUCONATE 50 MG TABLET PO SCH (08:26)
[2021-04-13] MEDS: cilostazoL 50 MG TABLET PO SCH ×2 (08:26→19:47)
[2021-04-13] MEDS: ROSUVASTATIN 20 MG TABLET PO SCH (08:26)
[2021-04-13] MEDS: ASPIRIN 325 MG TABLET PO SCH (08:26)
[2021-04-13] MEDS: ASCORBIC ACID 500 MG TABLET PO SCH ×2 (08:28→10:06)
[2021-04-13] MEDS: LINEZOLID INJ 600 MG/300 ML PREMIX IV SCH ×2 (09:45→21:47)
[2021-04-13] MEDS: FLUCONAZOLE INJ 200 MG/100 ML PREMIX IV SCH (15:08)
[2021-04-13] MEDS: LITHIUM 300 MG CAPSULE PO SCH (18:11)
[2021-04-14] MEDS: hydrALAZINE 20 MG/1 ML VIAL IV PRN (00:17)
[2021-04-14] MEDS: methylPREDNISolone SOD SUC 40 MG/1 ML VIAL IV SCH ×3 (00:49→17:20)
[2021-04-14] MEDS: METOCLOPRAMIDE 10 MG/2 ML VIAL IV SCH ×4 (00:49→17:20)
[2021-04-14] MEDS: PANTOPRAZOLE 40 MG VIAL IV SCH (00:49)
[2021-04-14] MEDS: INSULIN REGULAR 100 UNIT/ML SUBCUT SCH ×5 (00:57→23:36)
[2021-04-14] MEDS: ALBUTEROL/IPRATROPIUM 3 ML NEB RESP TX SCH ×4 (01:05→20:12)
[2021-04-14] MEDS: MEROPENEM 500 MG in SODIUM CHLORIDE 0.9% 100 ML IV SCH ×4 (02:37→19:31)
[2021-04-14] MEDS: ENOXAPARIN 40 MG/0.4 ML SYRINGE SUBCUT SCH (02:38)
[2021-04-14 04:44] LABS: ABG Base Excess -0.3 MMOL/L (-2.5-2.5); ABG HCO3 24.1 MMOL/L (20-26); ABG Oxygen Saturation 97.3 % (95-100); ABG PCO2 44.3 MM HG (35-48); ABG PH 7.365 (7.35-7.45); ABG PO2 97.1 MM HG (80-95); ABG TCO2 22.4 MMOL/L (23-27)
[2021-04-14 06:06] LABS: Hematocrit 37.4 VOL% (42.0-52.0); Hemoglobin 11.8 GM/DL (14.0-18.0); Immature Granulocytes % 0.6 %; Immature Granulocytes Absolute 0.07 #; Lymphocytes # 0.3 10*3/uL (1.4-4.0); Lymphocytes % 2.3 % (21.2-54.2); Mean Corpuscular HGB Conc 31.6 GM/DL (32-36); Mean Corpuscular Volume 95.4 FL (87-102); Mean Platelet Volume 10.7 FL (9.6-12.0); Neutrophils % 94.1 % (38.7-73.9); Platelet Count 172 T/CUMM (130-400); Red Blood Count 3.92 MC/CUMM (3.8-5.5); Red Cell Distribution Width 14.9 % (9.3-17.3)
[2021-04-14 06:28] LABS: Calcium 9.2 MG/DL (8.5-10.1); Osmolality,Calculated 296.7 MOS/KG (273-304); Potassium 5.7 MMOL/L (3.5-5.1)
[2021-04-14 06:30] LABS: Lymphocytes 3 % (20-55); Platelet Estimate Normal; Segmented Neutrophils 94 % (50-85); Total Cells Counted 100
[2021-04-14] MEDS: ZINC GLUCONATE 50 MG TABLET PO SCH (09:04)
[2021-04-14] MEDS: ROSUVASTATIN 20 MG TABLET PO SCH (09:05)
[2021-04-14] MEDS: ASCORBIC ACID 500 MG TABLET PO SCH (09:05)
[2021-04-14] MEDS: cilostazoL 50 MG TABLET PO SCH ×2 (09:05→19:31)
[2021-04-14] MEDS: ASPIRIN 325 MG TABLET PO SCH (09:05)
[2021-04-14] MEDS: SODIUM CHLORIDE 0.9% 1,000 ML IV SCH ×2 (09:06→23:27)
[2021-04-14] MEDS: LINEZOLID INJ 600 MG/300 ML PREMIX IV SCH ×2 (09:06→21:20)
[2021-04-14] MEDS: GABAPENTIN 300 MG CAPSULE PO SCH ×2 (09:06→19:31)
[2021-04-14] MEDS: FLUCONAZOLE INJ 200 MG/100 ML PREMIX IV SCH (13:01)
[2021-04-14] MEDS: LITHIUM 300 MG CAPSULE PO SCH (17:21)
[2021-04-15] MEDS: methylPREDNISolone SOD SUC 40 MG/1 ML VIAL IV SCH ×3 (00:36→17:26)
[2021-04-15] MEDS: METOCLOPRAMIDE 10 MG/2 ML VIAL IV SCH ×4 (00:36→17:27)
[2021-04-15] MEDS: PANTOPRAZOLE 40 MG VIAL IV SCH (00:36)
[2021-04-15] MEDS: ALBUTEROL/IPRATROPIUM 3 ML NEB RESP TX SCH ×4 (02:12→19:12)
[2021-04-15] MEDS: MEROPENEM 500 MG in SODIUM CHLORIDE 0.9% 100 ML IV SCH ×2 (02:15→08:31)
[2021-04-15] MEDS: ENOXAPARIN 40 MG/0.4 ML SYRINGE SUBCUT SCH (02:16)
[2021-04-15 04:10] LABS: ABG Base Excess -0.7 MMOL/L (-2.5-2.5); ABG Oxygen Saturation 97.3 % (95-100); ABG PCO2 45.3 MM HG (35-48); ABG PH 7.359 (7.35-7.45); ABG PO2 96.7 MM HG (80-95); ABG TCO2 26.4 MMOL/L (23-27)
[2021-04-15 04:32] LABS: Hematocrit 36.5 VOL% (42.0-52.0); Hemoglobin 11.4 GM/DL (14.0-18.0); Lymphocytes % 2.3 % (21.2-54.2); Mean Corpuscular HGB Conc 31.2 GM/DL (32-36); Mean Corpuscular Volume 96.8 FL (87-102); Mean Platelet Volume 10.7 FL (9.6-12.0); Neutrophils % 94.6 % (38.7-73.9); Platelet Count 164 T/CUMM (130-400); Red Blood Count 3.77 MC/CUMM (3.8-5.5); Red Cell Distribution Width 14.8 % (9.3-17.3); White Blood Count 9.8 T/CUMM (4-12)
[2021-04-15 04:33] LABS: Immature Granulocytes % 0.8 %; Immature Granulocytes Absolute 0.08 #; Lymphocytes # 0.2 10*3/uL (1.4-4.0); Monocytes % 2.3 % (1.7-12.7)
[2021-04-15 04:52] LABS: Calcium 9.2 MG/DL (8.5-10.1); Potassium 5.6 MMOL/L (3.5-5.1)
[2021-04-15] MEDS: INSULIN REGULAR 100 UNIT/ML SUBCUT SCH ×3 (05:33→18:35)
[2021-04-15] MEDS: GABAPENTIN 300 MG CAPSULE PO SCH ×2 (08:18→20:17)
[2021-04-15] MEDS: ASPIRIN 325 MG TABLET PO SCH (08:18)
[2021-04-15] MEDS: cilostazoL 50 MG TABLET PO SCH ×2 (08:18→20:17)
[2021-04-15] MEDS: LACTULOSE 20 GM/30 ML UDCUP PO SCH (08:18)
[2021-04-15] MEDS: ASCORBIC ACID 500 MG TABLET PO SCH (08:18)
[2021-04-15] MEDS: ROSUVASTATIN 20 MG TABLET PO SCH (08:18)
[2021-04-15] MEDS: ZINC GLUCONATE 50 MG TABLET PO SCH (08:18)
[2021-04-15] MEDS: LINEZOLID INJ 600 MG/300 ML PREMIX IV SCH (09:00)
[2021-04-15] MEDS: LITHIUM 300 MG CAPSULE PO SCH ×2 (14:58→20:17)
[2021-04-15] MEDS: FLUCONAZOLE INJ 200 MG/100 ML PREMIX IV SCH (14:59)
[2021-04-15 17:59] LABS: ABG Base Excess 0.7 MMOL/L (-2.5-2.5); ABG HCO3 27.6 MMOL/L (20-26); ABG Oxygen Saturation 94.2 % (95-100); ABG PCO2 54.2 MM HG (35-48); ABG PH 7.324 (7.35-7.45); ABG PO2 72.7 MM HG (80-95); ABG TCO2 29.2 MMOL/L (23-27)
[2021-04-16] MEDS: ALBUTEROL/IPRATROPIUM 3 ML NEB RESP TX SCH ×4 (00:18→19:20)
[2021-04-16] MEDS: PANTOPRAZOLE 40 MG VIAL IV SCH (00:43)
[2021-04-16] MEDS: methylPREDNISolone SOD SUC 40 MG/1 ML VIAL IV SCH ×3 (00:44→19:18)
[2021-04-16] MEDS: METOCLOPRAMIDE 10 MG/2 ML VIAL IV SCH ×5 (00:44→23:45)
[2021-04-16] MEDS: INSULIN REGULAR 100 UNIT/ML SUBCUT SCH ×5 (00:45→23:53)
[2021-04-16] MEDS: ENOXAPARIN 40 MG/0.4 ML SYRINGE SUBCUT SCH (02:53)
[2021-04-16 04:19] LABS: Hematocrit 34.2 VOL% (42.0-52.0); Hemoglobin 10.5 GM/DL (14.0-18.0); Immature Granulocytes % 0.8 %; Immature Granulocytes Absolute 0.08 #; Lymphocytes # 0.4 10*3/uL (1.4-4.0); Lymphocytes % 3.4 % (21.2-54.2); Mean Corpuscular HGB Conc 30.7 GM/DL (32-36); Mean Corpuscular Volume 96.9 FL (87-102); Mean Platelet Volume 10.6 FL (9.6-12.0); Monocytes % 2.9 % (1.7-12.7); Neutrophils % 92.9 % (38.7-73.9); Platelet Count 141 T/CUMM (130-400); Red Blood Count 3.53 MC/CUMM (3.8-5.5); Red Cell Distribution Width 14.9 % (9.3-17.3); White Blood Count 10.4 T/CUMM (4-12)
[2021-04-16 04:22] LABS: ABG Base Excess 3.2 MMOL/L (-2.5-2.5); ABG HCO3 27.3 MMOL/L (20-26); ABG Oxygen Saturation 97.9 % (95-100); ABG PCO2 48.1 MM HG (35-48); ABG PH 7.388 (7.35-7.45); ABG PO2 99.6 MM HG (80-95)
[2021-04-16 04:46] LABS: Calcium 9.4 MG/DL (8.5-10.1); Osmolality,Calculated 291.5 MOS/KG (273-304); Potassium 5.6 MMOL/L (3.5-5.1)
[2021-04-16 04:55] LABS: Lymphocytes 6 % (20-55); Segmented Neutrophils 90 % (50-85); Total Cells Counted 100
[2021-04-16 04:56] LABS: Platelet Estimate Normal
[2021-04-16] MEDS: ASCORBIC ACID 500 MG TABLET PO SCH (07:33)
[2021-04-16] MEDS: ZINC GLUCONATE 50 MG TABLET PO SCH (07:33)
[2021-04-16] MEDS: cilostazoL 50 MG TABLET PO SCH ×2 (07:33→20:33)
[2021-04-16] MEDS: ASPIRIN 325 MG TABLET PO SCH (07:33)
[2021-04-16] MEDS: ROSUVASTATIN 20 MG TABLET PO SCH (07:33)
[2021-04-16] MEDS: GABAPENTIN 300 MG CAPSULE PO SCH ×2 (07:56→20:33)
[2021-04-16] MEDS: LITHIUM 300 MG CAPSULE PO SCH ×2 (08:13→20:33)
[2021-04-16] MEDS ORDERED: FUROSEMIDE 40 MG/4 ML VIAL IV ONE (09:07)
[2021-04-16 12:49] LABS: ABG Base Excess 5.2 MMOL/L (-2.5-2.5); ABG HCO3 28.7 MMOL/L (20-26); ABG Oxygen Saturation 80.6 % (95-100); ABG PCO2 55.2 MM HG (35-48); ABG PH 7.371 (7.35-7.45); ABG PO2 46.4 MM HG (80-95); ABG TCO2 28.6 MMOL/L (23-27); Allen Test Positive; Pt O2 Delivery Device BIPAP
[2021-04-16] MEDS ORDERED: ETOMIDATE 20 MG/10 ML VIAL IV ONE ×2 (13:11→13:17)
[2021-04-16] MEDS ORDERED: SUCCINYLCHOLINE 200 MG/10 ML VIAL ONE (13:12)
[2021-04-16] MEDS ORDERED: ZINC OXIDE PASTE 113 GM TUBE TOP PRN (13:20)
[2021-04-16] MEDS ORDERED: SUCCINYLCHOLINE 200 MG/10 ML VIAL IV ONE (13:42)
[2021-04-16] MEDS: FLUCONAZOLE INJ 200 MG/100 ML PREMIX IV SCH (15:05)
[2021-04-16 15:27] LABS: ABG Base Excess 5.9 MMOL/L (-2.5-2.5); ABG HCO3 29.8 MMOL/L (20-26); ABG Oxygen Saturation 99.8 % (95-100); ABG PCO2 44.2 MM HG (35-48); ABG PH 7.449 (7.35-7.45); ABG TCO2 27.5 MMOL/L (23-27); Allen Test Positive; Pt O2 Delivery Device Ventilator
[2021-04-16] MEDS: MIDAZOLAM 100 MG in SODIUM CHLORIDE 0.9% 80 ML IV PRN ×2 (15:51→21:04)
[2021-04-17] MEDS: ALBUTEROL/IPRATROPIUM 3 ML NEB RESP TX SCH ×4 (01:40→19:15)
[2021-04-17] MEDS: PANTOPRAZOLE 40 MG VIAL IV SCH (01:54)
[2021-04-17] MEDS: methylPREDNISolone SOD SUC 40 MG/1 ML VIAL IV SCH ×2 (01:54→08:31)
[2021-04-17] MEDS: ENOXAPARIN 40 MG/0.4 ML SYRINGE SUBCUT SCH (02:01)
[2021-04-17 04:09] LABS: ABG Base Excess 6.5 MMOL/L (-2.5-2.5); ABG HCO3 29.2 MMOL/L (20-26); ABG Oxygen Saturation 98.9 % (95-100); ABG PH 7.539 (7.35-7.45); ABG PO2 148.5 MM HG (80-95); ABG TCO2 30.3 MMOL/L (23-27)
[2021-04-17 04:59] LABS: Hematocrit 33.1 VOL% (42.0-52.0); Hemoglobin 10.4 GM/DL (14.0-18.0); Immature Granulocytes % 0.8 %; Immature Granulocytes Absolute 0.06 #; Lymphocytes # 0.4 10*3/uL (1.4-4.0); Mean Corpuscular HGB Conc 31.4 GM/DL (32-36); Mean Corpuscular Volume 95.4 FL (87-102); Mean Platelet Volume 10.8 FL (9.6-12.0); Monocytes % 5.1 % (1.7-12.7); Neutrophils % 89.1 % (38.7-73.9); Platelet Count 151 T/CUMM (130-400); Red Blood Count 3.47 MC/CUMM (3.8-5.5); Red Cell Distribution Width 14.6 % (9.3-17.3); White Blood Count 7.9 T/CUMM (4-12)
[2021-04-17 05:19] LABS: Calcium 9.2 MG/DL (8.5-10.1); Osmolality,Calculated 297.4 MOS/KG (273-304); Potassium 4.9 MMOL/L (3.5-5.1)
[2021-04-17] MEDS: METOCLOPRAMIDE 10 MG/2 ML VIAL IV SCH ×3 (05:50→18:05)
[2021-04-17] MEDS: INSULIN REGULAR 100 UNIT/ML SUBCUT SCH ×3 (06:03→17:51)
[2021-04-17] MEDS: ASPIRIN 325 MG TABLET PO SCH (08:31)
[2021-04-17] MEDS: ROSUVASTATIN 20 MG TABLET PO SCH (08:31)
[2021-04-17] MEDS: ASCORBIC ACID 500 MG TABLET PO SCH (08:31)
[2021-04-17] MEDS: LITHIUM 300 MG CAPSULE PO SCH ×2 (08:31→21:13)
[2021-04-17] MEDS: ZINC GLUCONATE 50 MG TABLET PO SCH (08:31)
[2021-04-17] MEDS: cilostazoL 50 MG TABLET PO SCH ×2 (08:31→21:12)
[2021-04-17] MEDS: GABAPENTIN 300 MG CAPSULE PO SCH ×2 (08:32→21:12)
[2021-04-17] MEDS: amLODIPine 10 MG TABLET PER TUBE SCH (08:56)
[2021-04-17] MEDS: LEVOFLOXACIN INJ 750 MG/150 ML PREMIX IV SCH (08:56)
[2021-04-17] MEDS: MIDAZOLAM 100 MG in SODIUM CHLORIDE 0.9% 80 ML IV PRN (10:51)
[2021-04-17] MEDS: FLUCONAZOLE INJ 200 MG/100 ML PREMIX IV SCH (13:03)
[2021-04-17] MEDS: DEXAMETHASONE 4 MG/1 ML VIAL IV SCH ×2 (13:39→21:12)
[2021-04-18] MEDS: ALBUTEROL/IPRATROPIUM 3 ML NEB RESP TX SCH ×4 (00:25→19:29)
[2021-04-18] MEDS: INSULIN REGULAR 100 UNIT/ML SUBCUT SCH ×4 (00:48→17:45)
[2021-04-18] MEDS: METOCLOPRAMIDE 10 MG/2 ML VIAL IV SCH ×4 (00:49→17:43)
[2021-04-18] MEDS: MIDAZOLAM 100 MG in SODIUM CHLORIDE 0.9% 80 ML IV PRN ×2 (01:53→14:00)
[2021-04-18] MEDS: PANTOPRAZOLE 40 MG VIAL IV SCH (02:45)
[2021-04-18] MEDS: ENOXAPARIN 40 MG/0.4 ML SYRINGE SUBCUT SCH (03:00)
[2021-04-18 03:59] LABS: ABG HCO3 29.8 MMOL/L (20-26); ABG Oxygen Saturation 98.9 % (95-100); ABG PCO2 45.2 MM HG (35-48); ABG PH 7.437 (7.35-7.45); ABG PO2 191.3 MM HG (80-95); ABG TCO2 31.2 MMOL/L (23-27)
[2021-04-18] MEDS: DEXAMETHASONE 4 MG/1 ML VIAL IV SCH ×4 (05:15→20:33)
[2021-04-18 06:15] LABS: Basophils % 0.1 % (0.0-0.8); Hematocrit 31.3 VOL% (42.0-52.0); Hemoglobin 9.8 GM/DL (14.0-18.0); Immature Granulocytes % 0.5 %; Immature Granulocytes Absolute 0.05 #; Lymphocytes # 0.2 10*3/uL (1.4-4.0); Lymphocytes % 1.8 % (21.2-54.2); Mean Corpuscular HGB Conc 31.3 GM/DL (32-36); Mean Corpuscular Volume 96.6 FL (87-102); Mean Platelet Volume 11.1 FL (9.6-12.0); Neutrophils % 94.6 % (38.7-73.9); Platelet Count 150 T/CUMM (130-400); Red Blood Count 3.24 MC/CUMM (3.8-5.5); Red Cell Distribution Width 14.6 % (9.3-17.3); White Blood Count 10.4 T/CUMM (4-12)
[2021-04-18 06:32] LABS: Calcium 9.1 MG/DL (8.5-10.1); Osmolality,Calculated 300.4 MOS/KG (273-304); Potassium 4.4 MMOL/L (3.5-5.1)
[2021-04-18 06:50] LABS: Hypochromasia 1+; Lymphocytes 1 % (20-55); Segmented Neutrophils 93 % (50-85); Total Cells Counted 100
[2021-04-18 06:51] LABS: Microcytosis Slight; Platelet Estimate Adequate
[2021-04-18] MEDS: LEVOFLOXACIN INJ 750 MG/150 ML PREMIX IV SCH (09:09)
[2021-04-18] MEDS: ASPIRIN 325 MG TABLET PO SCH (09:09)
[2021-04-18] MEDS: LOSARTAN 50 MG TABLET PO SCH (09:09)
[2021-04-18] MEDS: ZINC GLUCONATE 50 MG TABLET PO SCH (09:09)
[2021-04-18] MEDS: ROSUVASTATIN 20 MG TABLET PO SCH (09:09)
[2021-04-18] MEDS: amLODIPine 10 MG TABLET PER TUBE SCH (09:09)
[2021-04-18] MEDS: ASCORBIC ACID 500 MG TABLET PO SCH (09:09)
[2021-04-18] MEDS: cilostazoL 50 MG TABLET PO SCH ×2 (09:09→20:33)
[2021-04-18] MEDS: LITHIUM 300 MG CAPSULE PO SCH ×2 (09:09→20:33)
[2021-04-18] MEDS: GABAPENTIN 300 MG CAPSULE PO SCH ×2 (09:10→20:41)
[2021-04-18] MEDS: FLUCONAZOLE INJ 200 MG/100 ML PREMIX IV SCH (13:38)
[2021-04-18] MEDS: TAMSULOSIN 0.4 MG CAPSULE PO SCH (20:33)
[2021-04-19] MEDS: METOCLOPRAMIDE 10 MG/2 ML VIAL IV SCH ×4 (00:23→18:27)
[2021-04-19] MEDS: INSULIN REGULAR 100 UNIT/ML SUBCUT SCH ×4 (00:23→18:27)
[2021-04-19] MEDS: PANTOPRAZOLE 40 MG VIAL IV SCH (02:13)
[2021-04-19] MEDS: MIDAZOLAM 100 MG in SODIUM CHLORIDE 0.9% 80 ML IV PRN (02:14)
[2021-04-19] MEDS: ENOXAPARIN 40 MG/0.4 ML SYRINGE SUBCUT SCH (02:14)
[2021-04-19 04:57] LABS: Basophils % 0.1 % (0.0-0.8); Hemoglobin 10.6 GM/DL (14.0-18.0); Immature Granulocytes % 0.5 %; Immature Granulocytes Absolute 0.07 #; Lymphocytes # 0.2 10*3/uL (1.4-4.0); Lymphocytes % 1.3 % (21.2-54.2); Mean Corpuscular HGB Conc 31.2 GM/DL (32-36); Mean Corpuscular Volume 97.4 FL (87-102); Mean Platelet Volume 10.7 FL (9.6-12.0); Monocytes % 3.8 % (1.7-12.7); Neutrophils % 94.3 % (38.7-73.9); Platelet Count 156 T/CUMM (130-400); Red Blood Count 3.49 MC/CUMM (3.8-5.5); Red Cell Distribution Width 14.6 % (9.3-17.3); White Blood Count 14.3 T/CUMM (4-12)
[2021-04-19 05:01] LABS: ABG Base Excess 4.7 MMOL/L (-2.5-2.5); ABG HCO3 28.7 MMOL/L (20-26); ABG Oxygen Saturation 98.4 % (95-100); ABG PCO2 47.7 MM HG (35-48); ABG PH 7.409 (7.35-7.45); ABG TCO2 27.5 MMOL/L (23-27)
[2021-04-19 05:17] LABS: Calcium 9.4 MG/DL (8.5-10.1); Osmolality,Calculated 300.3 MOS/KG (273-304); Potassium 4.3 MMOL/L (3.5-5.1)
[2021-04-19 05:25] LABS: Hypochromasia 1+; Lymphocytes 3 % (20-55); Microcytosis 1+; Platelet Estimate Adequate; Segmented Neutrophils 94 % (50-85); Total Cells Counted 100
[2021-04-19] MEDS: DEXAMETHASONE 4 MG/1 ML VIAL IV SCH ×3 (06:02→20:52)
[2021-04-19] MEDS: ALBUTEROL/IPRATROPIUM 3 ML NEB RESP TX SCH ×3 (07:05→19:19)
[2021-04-19] MEDS: ASPIRIN 325 MG TABLET PO SCH (08:19)
[2021-04-19] MEDS: ASCORBIC ACID 500 MG TABLET PO SCH (08:19)
[2021-04-19] MEDS: ZINC GLUCONATE 50 MG TABLET PO SCH (08:19)
[2021-04-19] MEDS: ROSUVASTATIN 20 MG TABLET PO SCH (08:19)
[2021-04-19] MEDS: cilostazoL 50 MG TABLET PO SCH ×2 (08:19→20:52)
[2021-04-19] MEDS: LOSARTAN 50 MG TABLET PO SCH (08:19)
[2021-04-19] MEDS: GABAPENTIN 300 MG CAPSULE PO SCH ×2 (08:20→20:52)
[2021-04-19] MEDS: LACTULOSE 20 GM/30 ML UDCUP PO SCH (08:20)
[2021-04-19] MEDS: amLODIPine 10 MG TABLET PER TUBE SCH (08:20)
[2021-04-19] MEDS: LITHIUM 300 MG CAPSULE PO SCH ×2 (08:20→20:52)
[2021-04-19] MEDS: LEVOFLOXACIN INJ 750 MG/150 ML PREMIX IV SCH (08:24)
[2021-04-19] MEDS: FLUCONAZOLE INJ 200 MG/100 ML PREMIX IV SCH (14:06)
[2021-04-19] MEDS: TAMSULOSIN 0.4 MG CAPSULE PO SCH (20:52)
[2021-04-20] MEDS: ALBUTEROL/IPRATROPIUM 3 ML NEB RESP TX SCH ×4 (00:02→19:40)
[2021-04-20] MEDS: INSULIN REGULAR 100 UNIT/ML SUBCUT SCH ×4 (00:21→17:22)
[2021-04-20] MEDS: METOCLOPRAMIDE 10 MG/2 ML VIAL IV SCH ×4 (00:21→17:43)
[2021-04-20] MEDS: MIDAZOLAM 100 MG in SODIUM CHLORIDE 0.9% 80 ML IV PRN (01:57)
[2021-04-20] MEDS: PANTOPRAZOLE 40 MG VIAL IV SCH (01:59)
[2021-04-20] MEDS: ENOXAPARIN 40 MG/0.4 ML SYRINGE SUBCUT SCH (02:38)
[2021-04-20 03:47] LABS: ABG Base Excess 4.4 MMOL/L (-2.5-2.5); ABG HCO3 29.2 MMOL/L (20-26); ABG Oxygen Saturation 97.1 % (95-100); ABG PCO2 44.4 MM HG (35-48); ABG PH 7.436 (7.35-7.45); ABG PO2 93.8 MM HG (80-95); ABG TCO2 30.6 MMOL/L (23-27)
[2021-04-20] MEDS: DEXAMETHASONE 4 MG/1 ML VIAL IV SCH ×3 (06:02→21:03)
[2021-04-20 06:43] LABS: Basophils % 0.1 % (0.0-0.8); Hematocrit 33.4 VOL% (42.0-52.0); Hemoglobin 10.3 GM/DL (14.0-18.0); Immature Granulocytes % 0.5 %; Immature Granulocytes Absolute 0.07 #; Lymphocytes # 0.2 10*3/uL (1.4-4.0); Lymphocytes % 1.3 % (21.2-54.2); Mean Corpuscular HGB Conc 30.8 GM/DL (32-36); Mean Corpuscular Volume 97.1 FL (87-102); Neutrophils % 95.1 % (38.7-73.9); Platelet Count 151 T/CUMM (130-400); Red Blood Count 3.44 MC/CUMM (3.8-5.5); Red Cell Distribution Width 14.7 % (9.3-17.3); White Blood Count 14.3 T/CUMM (4-12)
[2021-04-20 06:49] LABS: PT Patient Result 11.1 SECS (10.5-12.0)
[2021-04-20 07:03] LABS: Calcium 9.6 MG/DL (8.5-10.1); Osmolality,Calculated 300.1 MOS/KG (273-304); Potassium 4.4 MMOL/L (3.5-5.1)
[2021-04-20 07:09] LABS: Hypochromasia 1+; Lymphocytes 1 % (20-55); Microcytosis 1+; Platelet Estimate Adequate; Segmented Neutrophils 98 % (50-85); Total Cells Counted 100
[2021-04-20] MEDS ORDERED: MIDAZOLAM 10 MG/2 ML VIAL ONE (09:22)
[2021-04-20] MEDS: LEVOFLOXACIN INJ 750 MG/150 ML PREMIX IV SCH (09:25)
[2021-04-20] MEDS ORDERED: TRANEXAMIC ACID 1,000 MG/10 ML VIAL ONE (09:45)
[2021-04-20] MEDS ORDERED: LIDOCAINE 1%/EPI INJ 20 ML VIAL ONE (09:45)
[2021-04-20] MEDS ORDERED: EPINEPHRINE ONE (09:45)
[2021-04-20] MEDS: hydrALAZINE 20 MG/1 ML VIAL IV PRN (11:10)
[2021-04-20] MEDS ORDERED: SEVOFLURANE 1 UNIT/15 MINUTE INH ONE (12:17)
[2021-04-20] MEDS ORDERED: ROCURONIUM 50 MG/5 ML VIAL IV ONE (12:17)
[2021-04-20] MEDS ORDERED: propofoL 200 MG/20 ML VIAL IV ONE (12:17)
[2021-04-20] MEDS ORDERED: LACTATED RINGERS 1,000 ML IV ONE (12:17)
[2021-04-20] MEDS ORDERED: fentaNYL 100 MCG/2 ML VIAL ONE (12:17)
[2021-04-20] MEDS: cilostazoL 50 MG TABLET PO SCH ×2 (13:46→21:05)
[2021-04-20] MEDS: LOSARTAN 50 MG TABLET PO SCH (13:47)
[2021-04-20] MEDS: GABAPENTIN 300 MG CAPSULE PO SCH ×2 (13:47→21:04)
[2021-04-20] MEDS: LITHIUM 300 MG CAPSULE PO SCH ×2 (13:47→21:04)
[2021-04-20] MEDS: ZINC GLUCONATE 50 MG TABLET PO SCH (13:47)
[2021-04-20] MEDS: ASPIRIN 325 MG TABLET PO SCH (13:47)
[2021-04-20] MEDS: ASCORBIC ACID 500 MG TABLET PO SCH (13:47)
[2021-04-20] MEDS: amLODIPine 10 MG TABLET PER TUBE SCH (13:47)
[2021-04-20] MEDS: FLUCONAZOLE INJ 200 MG/100 ML PREMIX IV SCH (13:48)
[2021-04-20] MEDS: ROSUVASTATIN 20 MG TABLET PO SCH (13:49)
[2021-04-20] MEDS: CEFTAROLINE 600 MG in SODIUM CHLORIDE 0.9% 100 ML IV SCH (15:18)
[2021-04-20] MEDS: TAMSULOSIN 0.4 MG CAPSULE PO SCH (21:04)
[2021-04-21] MEDS: INSULIN REGULAR 100 UNIT/ML SUBCUT SCH ×4 (00:21→17:35)
[2021-04-21] MEDS: MIDAZOLAM 100 MG in SODIUM CHLORIDE 0.9% 80 ML IV PRN (00:30)
[2021-04-21] MEDS: METOCLOPRAMIDE 10 MG/2 ML VIAL IV SCH ×4 (00:58→17:35)
[2021-04-21] MEDS: PANTOPRAZOLE 40 MG VIAL IV SCH (02:18)
[2021-04-21] MEDS: ENOXAPARIN 40 MG/0.4 ML SYRINGE SUBCUT SCH (02:34)
[2021-04-21] MEDS: CEFTAROLINE 600 MG in SODIUM CHLORIDE 0.9% 100 ML IV SCH ×2 (02:34→14:20)
[2021-04-21] MEDS: ALBUTEROL/IPRATROPIUM 3 ML NEB RESP TX SCH ×4 (03:00→20:00)
[2021-04-21 04:05] LABS: ABG HCO3 28.8 MMOL/L (20-26); ABG Oxygen Saturation 96.1 % (95-100); ABG PCO2 44.2 MM HG (35-48); ABG PH 7.432 (7.35-7.45); ABG PO2 81.7 MM HG (80-95); ABG TCO2 30.2 MMOL/L (23-27)
[2021-04-21 05:32] LABS: Hemoglobin 10.6 GM/DL (14.0-18.0); Immature Granulocytes % 0.5 %; Immature Granulocytes Absolute 0.07 #; Lymphocytes # 0.3 10*3/uL (1.4-4.0); Lymphocytes % 2.5 % (21.2-54.2); Mean Corpuscular HGB Conc 30.3 GM/DL (32-36); Mean Corpuscular Volume 97.5 FL (87-102); Mean Platelet Volume 11.2 FL (9.6-12.0); Monocytes % 2.9 % (1.7-12.7); Neutrophils % 94.1 % (38.7-73.9); Platelet Count 147 T/CUMM (130-400); Red Blood Count 3.59 MC/CUMM (3.8-5.5); Red Cell Distribution Width 14.7 % (9.3-17.3); White Blood Count 13.5 T/CUMM (4-12)
[2021-04-21 05:56] LABS: Alanine Aminotransferase 25 U/L (16-61); Alkaline Phosphatase 90 U/L (45-117); Aspartate Amino Transferase 19 U/L (0-37); Bilirubin,Total < 0.39 MG/DL (0.20-1.00); Blood Urea Nitrogen 59 MG/DL (7-18); Calcium 9.5 MG/DL (8.5-10.1); Carbon Dioxide 26 MMOL/L (21-32); Estimated Glom Filtration Rate 131 ML/MIN; Glucose 140 MG/DL (74-106); Osmolality,Calculated 299.3 MOS/KG (273-304); Potassium 4.5 MMOL/L (3.5-5.1); Sodium 141 MMOL/L (136-145); Total Protein 5.1 G/DL (6.4-8.2)
[2021-04-21] MEDS: DEXAMETHASONE 4 MG/1 ML VIAL IV SCH ×2 (05:58→17:35)
[2021-04-21 06:03] LABS: Lymphocytes 3 % (20-55); Platelet Estimate Adequate; Segmented Neutrophils 97 % (50-85); Total Cells Counted 100
[2021-04-21 06:04] LABS: Hypochromasia Slight; Microcytosis Slight
[2021-04-21] MEDS: LOSARTAN 50 MG TABLET PO SCH (08:50)
[2021-04-21] MEDS: cilostazoL 50 MG TABLET PO SCH ×2 (08:50→20:49)
[2021-04-21] MEDS: ASPIRIN 325 MG TABLET PO SCH (08:50)
[2021-04-21] MEDS: GABAPENTIN 300 MG CAPSULE PO SCH ×2 (08:50→20:49)
[2021-04-21] MEDS: ROSUVASTATIN 20 MG TABLET PO SCH (08:50)
[2021-04-21] MEDS: ZINC GLUCONATE 50 MG TABLET PO SCH (08:50)
[2021-04-21] MEDS: LITHIUM 300 MG CAPSULE PO SCH ×2 (08:50→20:49)
[2021-04-21] MEDS: ASCORBIC ACID 500 MG TABLET PO SCH (08:50)
[2021-04-21] MEDS: amLODIPine 10 MG TABLET PER TUBE SCH (08:50)
[2021-04-21] MEDS ORDERED: FUROSEMIDE 40 MG/4 ML VIAL IV ONE (08:55)
[2021-04-21] MEDS: FLUCONAZOLE INJ 200 MG/100 ML PREMIX IV SCH (13:15)
[2021-04-21] MEDS: TAMSULOSIN 0.4 MG CAPSULE PO SCH (20:49)
[2021-04-22] MEDS: METOCLOPRAMIDE 10 MG/2 ML VIAL IV SCH ×3 (00:40→11:40)
[2021-04-22] MEDS: INSULIN REGULAR 100 UNIT/ML SUBCUT SCH ×3 (00:40→11:10)
[2021-04-22] MEDS: ALBUTEROL/IPRATROPIUM 3 ML NEB RESP TX SCH ×3 (00:45→13:45)
[2021-04-22] MEDS: PANTOPRAZOLE 40 MG VIAL IV SCH (02:30)
[2021-04-22] MEDS: CEFTAROLINE 600 MG in SODIUM CHLORIDE 0.9% 100 ML IV SCH ×2 (03:00→13:30)
[2021-04-22] MEDS: ENOXAPARIN 40 MG/0.4 ML SYRINGE SUBCUT SCH (03:25)
[2021-04-22 04:10] LABS: ABG HCO3 28.9 MMOL/L (20-26); ABG Oxygen Saturation 96.9 % (95-100); ABG PCO2 47.1 MM HG (35-48); ABG PH 7.417 (7.35-7.45); ABG PO2 88.6 MM HG (80-95); ABG TCO2 27.4 MMOL/L (23-27)
[2021-04-22 05:33] LABS: Basophils % 0.1 % (0.0-0.8); Hematocrit 32.2 VOL% (42.0-52.0); Immature Granulocytes % 0.6 %; Immature Granulocytes Absolute 0.09 #; Lymphocytes # 0.3 10*3/uL (1.4-4.0); Lymphocytes % 1.6 % (21.2-54.2); Mean Corpuscular HGB Conc 31.1 GM/DL (32-36); Mean Corpuscular Volume 97.6 FL (87-102); Mean Platelet Volume 11.5 FL (9.6-12.0); Monocytes % 3.6 % (1.7-12.7); Neutrophils % 94.1 % (38.7-73.9); Platelet Count 147 T/CUMM (130-400); Red Cell Distribution Width 15.2 % (9.3-17.3); White Blood Count 16.3 T/CUMM (4-12)
[2021-04-22 05:45] LABS: Calcium 9.8 MG/DL (8.5-10.1); Osmolality,Calculated 301.3 MOS/KG (273-304)
[2021-04-22 06:06] LABS: Lymphocytes 1 % (20-55); Platelet Estimate Normal; Segmented Neutrophils 94 % (50-85); Total Cells Counted 100
[2021-04-22] MEDS: DEXAMETHASONE 4 MG/1 ML VIAL IV SCH ×2 (06:10→16:35)
[2021-04-22] MEDS: LITHIUM 300 MG CAPSULE PO SCH (08:45)
[2021-04-22] MEDS: LOSARTAN 50 MG TABLET PO SCH (08:45)
[2021-04-22] MEDS: ROSUVASTATIN 20 MG TABLET PO SCH (08:45)
[2021-04-22] MEDS: GABAPENTIN 300 MG CAPSULE PO SCH (08:45)
[2021-04-22] MEDS: ASCORBIC ACID 500 MG TABLET PO SCH (08:45)
[2021-04-22] MEDS: ZINC GLUCONATE 50 MG TABLET PO SCH (08:45)
[2021-04-22] MEDS: LACTULOSE 20 GM/30 ML UDCUP PO SCH (08:45)
[2021-04-22] MEDS: cilostazoL 50 MG TABLET PO SCH (08:45)
[2021-04-22] MEDS: ASPIRIN 325 MG TABLET PO SCH (08:45)
[2021-04-22] MEDS: amLODIPine 10 MG TABLET PER TUBE SCH (08:45)
[2021-04-22] MEDS: MIDAZOLAM 100 MG in SODIUM CHLORIDE 0.9% 80 ML IV PRN (09:20)
[2021-04-22] MEDS ORDERED: INVEGA SUSTENA IM SCH (12:30)
[2021-04-22] MEDS: FLUCONAZOLE INJ 200 MG/100 ML PREMIX IV SCH (13:30)
[2021-04-22 17:30] VITALS: BP 77/39
== END 2021-04-22 16:50 | DRG 4 ==
LOC: EDUNIT# → EDBD → N.ED 20:45 → N.EDINP 22:05 → SUATTDRO 22:05 → N.ICU 23:40
PROVIDERS: ADMIT Family Medicine; ATTEND Family Medicine

== ENCOUNTER 2021-06-19 15:40 | Inpatient (IN) ==
[2021-06-19] MEDS ORDERED: SODIUM CHLORIDE 0.9% 1,000 ML IV STA (16:15)
[2021-06-19 16:16] LABS: Basophils % 0.1 % (0.0-0.8); Eosinophils # 0.1 10*3/uL (0.0-0.87); Eosinophils % 0.5 % (0.00-10.9); Hematocrit 31.4 VOL% (42.0-52.0); Hemoglobin 9.4 GM/DL (14.0-18.0); Immature Granulocytes Absolute 0.36 #; Lymphocytes # 0.9 10*3/uL (1.4-4.0); Lymphocytes % 7.3 % (21.2-54.2); Mean Corpuscular HGB Conc 29.9 GM/DL (32-36); Mean Corpuscular Volume 105.7 FL (87-102); Mean Platelet Volume 10.6 FL (9.6-12.0); Monocytes % 7.4 % (1.7-12.7); NRBC # 0.15 10*3/uL; Neutrophils % 81.7 % (38.7-73.9); Platelet Count 192 T/CUMM (130-400); Red Blood Count 2.97 MC/CUMM (3.8-5.5); Red Cell Distribution Width 18.3 % (9.3-17.3)
[2021-06-19 16:40] LABS: Alanine Aminotransferase 18 U/L (16-61); Albumin 2.2 G/DL (3.4-5.0); Alkaline Phosphatase 128 U/L (45-117); Aspartate Amino Transferase 17 U/L (0-37); Bilirubin,Total < 0.39 MG/DL (0.20-1.00); Blood Urea Nitrogen 25 MG/DL (7-18); Calcium 9.6 MG/DL (8.5-10.1); Carbon Dioxide 37 MMOL/L (21-32); Estimated Glom Filtration Rate 139 ML/MIN; Glucose 146 MG/DL (74-106); Osmolality,Calculated 276.1 MOS/KG (273-304); Potassium 4.5 MMOL/L (3.5-5.1); Sodium 135 MMOL/L (136-145); Total Protein 5.7 G/DL (6.4-8.2)
[2021-06-19 16:52] LABS: ABG Base Excess 9.1 MMOL/L (-2.5-2.5); ABG HCO3 32.8 MMOL/L (20-26); ABG Oxygen Saturation 95.2 % (95-100); ABG PH 7.325 (7.35-7.45); ABG PO2 83.5 MM HG (80-95); Allen Test Positive; Pt O2 Delivery Device BIPAP
[2021-06-19 16:53] LABS: ABG PCO2 74.8 MM HG (35-48)
[2021-06-19] MEDS ORDERED: LEVOFLOXACIN INJ 750 MG/150 ML PREMIX IV STA (17:09)
[2021-06-19] MEDS ORDERED: ALBUTEROL/IPRATROPIUM 3 ML NEB RESP TX STA (17:09)
[2021-06-19] MEDS ORDERED: ONDANSETRON 4 MG/2 ML VIAL IV PRN (18:22)
[2021-06-19] MEDS ORDERED: ALBUTEROL 2.5 MG/3 ML NEB RESP TX PRN (18:22)
[2021-06-19] MEDS ORDERED: SODIUM CHLORIDE 0.9% 1,000 ML IV SCH (18:30)
[2021-06-19 18:33] LABS: ABG Base Excess 8.5 MMOL/L (-2.5-2.5); ABG HCO3 32.2 MMOL/L (20-26); ABG Oxygen Saturation 97.9 % (95-100); ABG PH 7.249 (7.35-7.45); ABG TCO2 36.1 MMOL/L (23-27)
[2021-06-19 18:34] LABS: ABG PCO2 89.3 MM HG (35-48)
[2021-06-19 18:40] VITALS: BP 97/71
[2021-06-19] MEDS ORDERED: ALBUTEROL/IPRATROPIUM 3 ML NEB RESP TX SCH (19:00)
[2021-06-19] MEDS ORDERED: LITHIUM 300 MG CAPSULE PEG SCH (20:00)
[2021-06-19] MEDS ORDERED: CEFEPIME 1,000 MG in SODIUM CHLORIDE 0.9% 100 ML IV SCH (20:00)
[2021-06-19] MEDS ORDERED: metroNIDAZOLE INJ 500 MG/100 ML PREMIX IV SCH (21:00)
[2021-06-19] MEDS ORDERED: PANTOPRAZOLE 40 MG VIAL IV SCH (21:00)
[2021-06-19] MEDS ORDERED: VANCOMYCIN INJ 1,500 MG in SODIUM CHLORIDE 0.9% 500 ML IV SCH (21:00)
[2021-06-19] MEDS ORDERED: HEPARIN 5,000 UNIT/1 ML VIAL SUBCUT SCH (21:00)
[2021-06-19] MEDS ORDERED: ATORVASTATIN 80 MG TABLET PEG SCH (21:00)
[2021-06-19 21:15] LABS: ABG Base Excess 9.5 MMOL/L (-2.5-2.5); ABG HCO3 33.3 MMOL/L (20-26); ABG PH 7.287 (7.35-7.45); ABG TCO2 36.2 MMOL/L (23-27)
[2021-06-19 21:17] LABS: ABG PCO2 81.3 MM HG (35-48)
[2021-06-20] MEDS ORDERED: VECURONIUM 10 MG VIAL IV ONE (00:08)
[2021-06-20] MEDS ORDERED: ETOMIDATE 20 MG/10 ML VIAL IV ONE ×2 (00:08→00:14)
[2021-06-20] MEDS ORDERED: DEXTROSE 50% 25 GM/50 ML SYRINGE IV ONE (00:14)
[2021-06-20] MEDS ORDERED: EPINEPHrine 1 MG/ML VIAL ONE (00:14)
[2021-06-20] MEDS ORDERED: SODIUM BICARBONATE 50 MEQ/50 ML SYRINGE IV ONE (00:14)
[2021-06-20] MEDS ORDERED: CALCIUM CHLORIDE 1,000 MG/10 ML VIAL IV ONE (00:14)
[2021-06-20] MEDS ORDERED: EPINEPHrine 1 MG/10 ML SYRINGE ONE (00:14)
[2021-06-20] MEDS ORDERED: NOREPINEPHRINE 4 MG/4 ML VIAL IV ONE (00:14)
[2021-06-20] MEDS ORDERED: CIPROFLOXACIN INJ 400 MG/200 ML PREMIX IV SCH (05:00)
[2021-06-20] MEDS ORDERED: POLYETHYLENE GLYCOL POWDER 17 GM PACK PEG SCH (08:00)
[2021-06-20] MEDS ORDERED: MONTELUKAST 10 MG TABLET PEG SCH (08:00)
[2021-06-20] MEDS ORDERED: ASCORBIC ACID 500 MG TABLET PEG SCH (08:00)
[2021-06-20] MEDS ORDERED: ASPIRIN 325 MG TABLET PEG SCH (08:00)
== END 2021-06-20 00:41 | disposition expired | DRG 4 ==
LOC: EDBD → EDUNIT# → EDSEX → N.ED 15:40 → N.EDINP 18:22 → N.ICU 21:14
PROVIDERS: ADMIT Internal Medicine; ATTEND Internal Medicine